=== PATIENT | female | born 1945 | race Two or more races ===

== ENCOUNTER 2022-05-27 15:29 | Inpatient (IN) | payer MEDICAID ==
[~2022-05-27] VITALS: Ht 162.6 cm; Wt 60.3 kg
--- NOTE | 2022-05-27 16:00 | NUR ---
WITH TRACH TO MECHINICALE VENT SITING TV 450 FIO2 40 % AC 12/MIN
--- NOTE | 2022-05-27 16:25 | NUR ---
CALLED [facility] [phone] SUB ACUTE PER ANA ROSA PT HAS A NEPHEROSTOMY TUBE THAT WAS DISLODGED WITH DX OF SVT AND RESPITATORY FAILURE. HAS A PICC LINE ON R.U.E. FULL CODE PCP IS DR. LABOY [phone]
--- NOTE | 2022-05-27 16:39 | NUR ---
NAVARRO GRAY [phone]
--- NOTE | 2022-05-27 17:00 | NUR ---
MOVE SHEET SUBMITTED.
[2022-05-27 17:06] LABS: BASOPHILS % (AUTO) 0.4 % (0.0-2.0); EOSINOPHILS % (AUTO) 13.8 % (0.0-6.0); HEMATOCRIT 30 % (33-45); HEMOGLOBIN 9.5 g/dL (11.5-14.8); LYMPHOCYTES % (AUTO) 18.4 % (20.0-44.0); MEAN CORPUSCULAR HGB CONC 32 g/dl (31.0-36.0); MEAN CORPUSCULAR VOLUME 95 fL (82-100); MONOCYTES # (AUTO) 0.5 K/uL (0.1-1.30); MONOCYTES % (AUTO) 9.4 % (2.0-12.0); NEUTROPHILS # (AUTO) 3.2 K/uL (1.8-8.9); PLATELET COUNT (AUTO) 224 K/uL (150-450); RED BLOOD CELL COUNT(AUTO) 3.12 MIL/uL (4.0-5.2); WHITE BLOOD COUNT (AUTO) 5.4 K/uL (4.3-11.0)
[2022-05-27 17:15] LABS: CREATININE 0.7 mg/dL (0.6-1.3); POTASSIUM 3.7 mmol/L (3.5-5.1)
--- NOTE | 2022-05-27 17:47 | NUR ---
SHIV DOBBS SENT TO LAB
--- NOTE | 2022-05-27 18:30 | NUR ---
PT CAME WITH F/C UA SENT TO LAB
[2022-05-27 19:02] LABS: BILIRUBIN,URINE NEGATIVE (NEGATIVE); COLOR,URINE YELLOW (YELLOW); LEUKOCYTE ESTERASE ,URINE 1+ (NEGATIVE); NITRITE, URINE NEGATIVE (NEGATIVE); PROTEIN,URINE TRACE mg/dl (NEGATIVE); UGLUCOSE NEGATIVE (NEGATIVE); UROBILINOGEN,URINE 0.2 EU/dL (0.2)
[2022-05-27 19:08] LABS: BACTERIA,URINE 2+ /HPF (None Seen); RBC,URINE 21-50 /HPF (0-2)
[2022-05-27] MEDS ORDERED: CEFTRIAXONE 1GM BAG (ER ONLY) 50 ML IV ONE (19:22)
[2022-05-27] MEDS ORDERED: CEFTRIAXONE 1GM BAG (ER ONLY) 1 GM/50 ML PIGGYBACK IV ONE (19:30)
--- NOTE | 2022-05-27 19:45 | NUR ---
HAND OFF PAYTON MOORE
--- NOTE | 2022-05-27 21:03 | NUR ---
[facility] PAGED PER DR RAZO,
[2022-05-27] MEDS ORDERED: Z GUARD REMEDY 4 OZ OINT TP PRN (21:30)
[2022-05-27] MEDS ORDERED: hydrALAZINE HCL IV 20 MG VIAL IV PRN (21:30)
[2022-05-27] MEDS ORDERED: ACETAMINOPHEN 325 MG TABLET PO PRN (21:30)
[2022-05-27] MEDS ORDERED: MORPHINE SULFATE INJ 2 MG/ML DISP.SYRIN IV PRN (21:30)
[2022-05-27] MEDS ORDERED: ONDANSETRON HCL/PF 4 MG/2 ML VIAL IVP PRN (21:30)
--- NOTE | 2022-05-28 02:55 | NUR ---
REPORT GIVEN TO CLINTON
--- NOTE | 2022-05-28 03:30 | NUR ---
pt transported to room 112 on cardiac per acls in stable condition. RT at bedside at bedside.
[2022-05-28 03:45] VITALS: BP 116/58
[2022-05-28] MEDS ORDERED: CEFEPIME 2 GM in IV D5W 100 ML IV ONE (04:30)
--- NOTE | 2022-05-28 04:34 | NUR ---
RN NOTE 0338 ADMITTED PT WITH DIAGNOSIS OF NEPHROSTOMY TUBE EXCHANGE. PT ON WITH TRACH CONNECTED TO VENT WITH SETTINGS OF AC 12 TV 450 FIO2 40% P 5. O2 SAT AT 99%. PT NON VERBAL, OPEN EYES TO STIMULI. NOT IN ANY DISTRESS. PT CAME IN WITH LEFT HAND MITTENS, PT TRYING TO PULL OUT TUBINGS. COLOSTOMY BAG CHANGED WITH GREENISH WATERY OUTPUT. VILLANUEVA CATH INPLACE DRAINING TRAMAINE URINE OUTPUT. OLD NEPHROSTOMY SITE ON RIGHT LATERAL SIDE NOTED WITH SOME REDNESS. GT PATENT AND IN PLACE. JOYCELYN PICC INTACT, FLUSHING WELL, NO BLOOD RETURN NOTED. PRESSURE INJURY ON SACRUM, APPLIED MEPILEX. ALL SAFETY MEASURES IN PLACE. WILL CONTINUE TO MONITOR. WILL GIVE DUE MEDS.
[2022-05-28] MEDS: ENOXAPARIN SODIUM 40 MG/0.4 ML DISP.SYRIN SQ SCH ×2 (04:48→21:12)
[2022-05-28] MEDS: IV NS 0.9% 1,000 ML IV SCH ×2 (04:48→11:26)
[2022-05-28] MEDS ORDERED: CEFEPIME 2 GM in IV D5W 100 ML IV SCH (06:30)
--- NOTE | 2022-05-28 07:00 | NUR ---
STRUCTURAL STEEL TRADES WORKER OPENING NOTES: RN NOTE Received patient in bed,AWAKE, NON VERBAL DOESN'T FOLLOW COMMAND, in no acute distress, ON MECHANICAL VENT PRESCRIBED. IV line at JOYCELYN PICC LINE IS LEAKING WILL INSERT NEW LINE, IV fluid of NS at 75 ml/hr. NOTED WITH LEFT HAND MITTEN, SKIN AND CIRCULATION CHECKED WITHIN NORMAL.COLOSTOMY BAG IN PLACE.VILLANUEVA CATH CONNECTED TO GRAVITY BAG DRAINING YELLOW CLEAR URINE.NO LEAKING NOTED.Safety measures in place, bed is locked and at lowest position, call light within reach of patient. Will continue to monitor and reassess.
[2022-05-28 07:03] LABS: BASOPHILS % (AUTO) 0.6 % (0.0-2.0); EOSINOPHILS % (AUTO) 14.3 % (0.0-6.0); HEMATOCRIT 28 % (33-45); HEMOGLOBIN 9.2 g/dL (11.5-14.8); LYMPHOCYTES # (AUTO) 1.1 K/uL (0.8-4.8); LYMPHOCYTES % (AUTO) 17.8 % (20.0-44.0); MEAN CORPUSCULAR HGB CONC 33 g/dl (31.0-36.0); MEAN CORPUSCULAR VOLUME 94 fL (82-100); MONOCYTES # (AUTO) 0.6 K/uL (0.1-1.30); MONOCYTES % (AUTO) 10.3 % (2.0-12.0); NEUTROPHILS # (AUTO) 3.4 K/uL (1.8-8.9); PLATELET COUNT (AUTO) 245 K/uL (150-450); RED BLOOD CELL COUNT(AUTO) 2.96 MIL/uL (4.0-5.2); WHITE BLOOD COUNT (AUTO) 5.9 K/uL (4.3-11.0)
[2022-05-28 07:15] LABS: ALBUMIN 2.7 g/dL (3.4-5.0); BILIRUBIN,TOTAL 0.4 mg/dL (0.2-1.0); CALCIUM, SERUM 9.2 mg/dL (8.5-10.1); CREATININE 0.7 mg/dL (0.6-1.3); MAGNESIUM 2.1 mg/dL (1.8-2.4); POTASSIUM 3.9 mmol/L (3.5-5.1); TOTAL PROTEIN, SERUM 7.2 g/dL (6.4-8.2)
[2022-05-28 08:00] VITALS: BP 121/58
[2022-05-28] MEDS ORDERED: HEPA50008 SQ (08:58)
[2022-05-28] MEDS ORDERED: ACET-2605 GT (08:58)
[2022-05-28] MEDS ORDERED: MELO-105 GT (08:58)
[2022-05-28] MEDS ORDERED: LEVO500P10 IV (08:58)
[2022-05-28] MEDS ORDERED: METO25TA20 GT (08:58)
[2022-05-28] MEDS ORDERED: BISA10SU11 RC (08:58)
[2022-05-28] MEDS ORDERED: IPRA4AER IH (08:58)
[2022-05-28] MEDS ORDERED: CHLO473M5 MM (08:58)
[2022-05-28] MEDS ORDERED: DOCU50LI GT (08:58)
[2022-05-28] MEDS ORDERED: ATOR40TA GT (08:58)
[2022-05-28] MEDS ORDERED: BUSP5TAB3 GT (08:58)
[2022-05-28] MEDS ORDERED: PANT40SU GT (08:58)
[2022-05-28] MEDS ORDERED: MULT-447 GT (08:58)
[2022-05-28] MEDS ORDERED: MAGN400O6 GT (08:58)
[2022-05-28] MEDS ORDERED: ACET-868 GT (08:58)
[2022-05-28] MEDS ORDERED: ASPI-1169 GT (08:58)
[2022-05-28] MEDS ORDERED: NUTR250L50 GT (08:58)
[2022-05-28] MEDS: ASPIRIN 81 MG TAB.CHEW GT SCH (11:26)
[2022-05-28] MEDS ORDERED: HOME MED MISCELLANEOUS XX SCH (11:30)
[2022-05-28] MEDS ORDERED: MAGNESIUM HYDROXIDE 30 ML UDC GT PRN (11:30)
[2022-05-28] MEDS ORDERED: BISACODYL SUPP (10 MG) 10 MG/SUPP.RECT SUPP.RECT RC PRN (11:30)
[2022-05-28] MEDS ORDERED: JEVITY 1.2 CAL 1,000 ML BOTTLE GT PRN ×2 (11:30→12:58)
[2022-05-28] MEDS ORDERED: ACETAMINOPHEN ES 500 MG TABLET GT PRN (11:30)
[2022-05-28 12:00] VITALS: BP 115/58
--- NOTE | 2022-05-28 12:02 | NUR ---
LINE NOT PICCLINE,PER FRANCHESCA NO NEED TO CULTURE.
[2022-05-28] MEDS: Z GUARD REMEDY 4 OZ OINT TP SCH (14:23)
[2022-05-28 16:00] VITALS: BP 113/53
[2022-05-28] MEDS: busPIRone 5 MG TABLET GT SCH (16:40)
[2022-05-28] MEDS: CHLORHEXIDINE GLUCONATE 15 ML UDC MM SCH (16:40)
[2022-05-28] MEDS: CEFEPIME 2 GM in IV D5W 100 ML IV SCH (17:03)
--- NOTE | 2022-05-28 19:03 | NUR ---
RN CLOSING NOTE: PT IS AWAKE IN BED. NO SIGNS OF PAIN OR DISCOMFORT AT THIS TIME. IV YUMIKO MIDLINE. TRACH IS PATENT, INTACT, AND IN MIDLINE POSITION. PT IS ON GTF JEVITY 50CC/HR. HOB ELEVATED TO 30-45 DEGREES. SIDERAILS UP AT ALL TIMES. CALL LIGHT WITHIN REACH. WILL ENDORSE TO ONCOMING NURSE.
--- NOTE | 2022-05-28 19:30 | NUR ---
PT RECEIVED AWAKE IN BED. NO SIGNS OF PAIN OR DISCOMFORT AT THIS TIME. IV YUMIKO MIDLINE INFUSING NS AT 75ML/HR. TRACH IS PATENT, INTACT WITH SETTINGS PRESCRIBED. PT IS ON GTF JEVITY 1.2 AT 50CC/HR. VILLANUEVA CATH IN PLACE DRAINING CLEAR YELLOW URINE. SAFETY MEASURES IN PLACE. HOB ELEVATED, SIDERAILS UPX3, BED LOCKED IN LOWEST POSITION, BED ALARM ON, CALL LIGHT WITHIN REACH. WILL CONTINUE PLAN OF CARE.
[2022-05-28 20:00] VITALS: BP 121/56
[2022-05-28] MEDS: METOPROLOL TARTRATE 25 MG TABLET GT SCH (21:10)
[2022-05-28] MEDS: ATORVASTATIN 40 MG TABLET GT SCH (21:13)
[2022-05-29] VITALS: BP 116/50
[2022-05-29 04:00] VITALS: BP 124/61
[2022-05-29] MEDS: CEFEPIME 2 GM in IV D5W 100 ML IV SCH ×2 (05:00→17:19)
--- NOTE | 2022-05-29 06:37 | NUR ---
PT ASLEEP IN BED. NO SIGNS OF PAIN OR DISCOMFORT AT THIS TIME. IV ACCESS ON YUMIKO MIDLINE PATENT AND INTACT. TRACH IS PATENT, INTACT WITH SETTINGS PRESCRIBED. PT IS ON NPO DIET. VILLANUEVA CATH IN PLACE DRAINING CLEAR YELLOW URINE. COLOSTOMY BAG CHANGED. LT SOFT WRIST RESTRAINT IN PLACE, CHECKED FOR CIRCULATION. DUE MEDS GIVEN ORDERED. NEEDS ATTENDED. SAFETY MEASURES MAINTAINED, HOB ELEVATED, SIDERAILS UPX3, BED LOCKED IN LOWEST POSITION, BED ALARM ON, CALL LIGHT WITHIN REACH. WILL ENDORSE TO NEXT NURSE ON DUTY FOR CONTINUITY OF CARE.
--- NOTE | 2022-05-29 07:00 | NUR ---
RN OPENING NOTES: RECIEVED PT AWAKE IN BED. NON VERBAL AND UNABLE TO FOLLOW COMMAND. PT HAS SOFT RESTRAINTS ON LEFT WRIST TO PREVENT FROM PULLING LIFE SUSTAINING TUBES. NO SIGNS OF PAIN OR DISCOMFORT AT THIS TIME. RESPIRATIONS ARE EQUAL AND UNLABORED WITH NO SOB. TRACH IS PATENT, INTACT, AND IN MIDLINE POSITION. GT IS PATENT AND INTACT. PT HAS BEEN NPO SINCE MIDNIGHT FOR POSSIBLE PROCEDURE TODAY. HOB ELEVATED TO 30-45 DEGREES. SIDERAILS UP AT ALL TIMES. WILL CONTINUE TO MONITOR.
[2022-05-29 07:12] LABS: BASOPHILS % (AUTO) 0.4 % (0.0-2.0); EOSINOPHILS % (AUTO) 11.3 % (0.0-6.0); HEMATOCRIT 27 % (33-45); HEMOGLOBIN 8.6 g/dL (11.5-14.8); LYMPHOCYTES # (AUTO) 1.3 K/uL (0.8-4.8); LYMPHOCYTES % (AUTO) 17.4 % (20.0-44.0); MEAN CORPUSCULAR HGB CONC 32 g/dl (31.0-36.0); MEAN CORPUSCULAR VOLUME 96 fL (82-100); MONOCYTES # (AUTO) 0.7 K/uL (0.1-1.30); NEUTROPHILS # (AUTO) 4.6 K/uL (1.8-8.9); NEUTROPHILS % (AUTO) 61.9 % (43.0-81.0); PLATELET COUNT (AUTO) 220 K/uL (150-450); RED BLOOD CELL COUNT(AUTO) 2.78 MIL/uL (4.0-5.2); WHITE BLOOD COUNT (AUTO) 7.4 K/uL (4.3-11.0)
[2022-05-29 07:17] LABS: CALCIUM, SERUM 8.3 mg/dL (8.5-10.1); CREATININE 0.6 mg/dL (0.6-1.3); POTASSIUM 3.9 mmol/L (3.5-5.1)
[2022-05-29 08:00] VITALS: BP 110/69
--- NOTE | 2022-05-29 08:08 | NUR ---
RN NOTES: SPOKE WITH FRANCHESCA ELLER SECONDS GRADER PT IS NPO FOR POSSIBLE PROCEDURE NEPHROSTOMOY PLACEMENT TODAY. WITH NEW ORDER TO START IVF D5 NS @50ML/HR UNTIL PROCEDURE DONE.
[2022-05-29] MEDS: IV D5/ 0.9% NACL 1,000 ML IV PRN (08:18)
[2022-05-29] MEDS: MELOXICAM 7.5 MG TABLET GT SCH (08:41)
[2022-05-29] MEDS: ASPIRIN 81 MG TAB.CHEW GT SCH (08:42)
[2022-05-29] MEDS: CHLORHEXIDINE GLUCONATE 15 ML UDC MM SCH ×3 (08:42→17:19)
[2022-05-29] MEDS: MULTIVITAMINS,THERAGRAN 1 UDTAB TABLET GT SCH (08:42)
[2022-05-29] MEDS: DOCUSATE SODIUM LIQ 100 MG/10 ML UDC GT SCH (08:42)
[2022-05-29] MEDS: busPIRone 5 MG TABLET GT SCH ×2 (08:42→17:19)
[2022-05-29] MEDS: Z GUARD REMEDY 4 OZ OINT TP SCH (09:15)
[2022-05-29] MEDS: METOPROLOL TARTRATE 25 MG TABLET GT SCH ×2 (09:18→21:46)
--- NOTE | 2022-05-29 09:34 | NUR ---
WOUND CARE CONSULT: PT NOTED TO BE SCRATCHING AT HER SKIN. SCABS, SCARS, AREAS OF DISCOLORATION NOTED EPECIALLY ON RT SIDE OF BODY, PRESENT ON ADMISSION. SACRAL SCARRING WITH INCONTINENCE ASSOCIATED OPEN AREA OVER SCARRING NOTED. RECOMMENDATIONS MADE FOR SKIN PROTECTION. DISCUSSED WITH NURSING STAFF. MD IN AGREEMENT WITH PLAN OF CARE.
[2022-05-29 12:00] VITALS: BP 115/62
[2022-05-29] MEDS ORDERED: PERMETHRIN 5% CRM 60 GM TUBE TP ONE (13:30)
[2022-05-29 16:00] VITALS: BP 125/67
--- NOTE | 2022-05-29 18:50 | NUR ---
RN CLOSING NOTE: PT IS AWAKE IN BED. NO SIGNS OF PAIN OR DISCOMFORT AT THIS TIME. IV YUMIKO MIDLINE PATENT AND INTACT. TRACH IS PATENT, INTACT, AND IN MIDLINE POSITION. PT IS ON GTF JEVITY 50CC/HR AND CURRENTLY RUNNING. HOB ELEVATED TO 30-45 DEGREES. SIDERAILS UP AT ALL TIMES. CALL LIGHT WITHIN REACH. WILL ENDORSE TO ONCOMING NURSE.
--- NOTE | 2022-05-29 19:30 | NUR ---
RN OPENING NOTES: RECIEVED PT AWAKE IN BED. NON VERBAL ON MECH VENT TOLERATING WELL. AND UNABLE TO FOLLOW COMMAND. PT HAS SOFT RESTRAINTS ON LEFT WRIST TO PREVENT FROM PULLING LIFE SUSTAINING TUBES. NO SIGNS OF PAIN OR DISCOMFORT AT THIS TIME. RESPIRATIONS ARE EQUAL AND UNLABORED WITH NO SOB. TRACH IS PATENT, INTACT, AND IN MIDLINE POSITION. GTUBE IS PATENT AND INTACT. PT HAS G TUBE RUNNING JEVITY@50ML/HR. WILL MAKE NPO AT MIDNIGHT. VILLANUEVA DRAINING CLEAR YELLOW URINE, PT HAS OSTOMY POUCH LQUADRANT PRODUCING BROWN LOOSE STOOL.SAFETY MEASURES IMPLEMENTED, BED IN LOWEST POSITION, LOCKED, SIDE RAILS UP, CALL LIGHT WITHIN REACH. WILL CONTINUE TO MONITOR THROUGHOUT SHIFT FOR ALBERTA.
[2022-05-29 20:00] VITALS: BP 129/70
[2022-05-29] MEDS: THERAHONEY GEL 1.5 OZ TUBE TP SCH (20:16)
[2022-05-29] MEDS: ATORVASTATIN 40 MG TABLET GT SCH (21:45)
[2022-05-30] VITALS: BP 135/72
[2022-05-30 04:00] VITALS: BP 130/65
[2022-05-30] MEDS: CEFEPIME 2 GM in IV D5W 100 ML IV SCH ×2 (06:45→17:52)
--- NOTE | 2022-05-30 07:42 | NUR ---
RN OPENING NOTES RECEIVED PT AWAKE IN BED. NON VERBAL ON [facility] VENT TOLERATING WELL. AND UNABLE TO FOLLOW COMMAND. PT HAS SOFT RESTRAINTS ON LEFT WRIST TO PREVENT FROM PULLING LIFE SUSTAINING TUBES. NO SIGNS OF PAIN OR DISCOMFORT AT THIS TIME. RESPIRATIONS ARE EQUAL AND UNLABORED WITH NO SOB. TRACH IS PATENT, INTACT, AND IN MIDLINE POSITION. GTUBE IS PATENT AND INTACT. PT HAS G TUBE RUNNING JEVITY@50ML/HR. WILL MAKE NPO AT MIDNIGHT. VILLANUEVA DRAINING CLEAR YELLOW URINE, PT HAS OSTOMY POUCH L QUADRANT PRODUCING BROWN LOOSE STOOL.SAFETY MEASURES IMPLEMENTED, BED IN LOWEST POSITION, LOCKED, SIDE RAILS UP, CALL LIGHT WITHIN REACH.
[2022-05-30 08:00] VITALS: BP 123/71
[2022-05-30] MEDS: ASPIRIN 81 MG TAB.CHEW GT SCH (08:02)
[2022-05-30] MEDS: DOCUSATE SODIUM LIQ 100 MG/10 ML UDC GT SCH (08:05)
[2022-05-30] MEDS: CHLORHEXIDINE GLUCONATE 15 ML UDC MM SCH ×2 (08:05→16:29)
[2022-05-30] MEDS: MULTIVITAMINS,THERAGRAN 1 UDTAB TABLET GT SCH (08:05)
[2022-05-30] MEDS: Z GUARD REMEDY 4 OZ OINT TP SCH (08:06)
[2022-05-30] MEDS: METOPROLOL TARTRATE 25 MG TABLET GT SCH ×2 (08:06→21:19)
[2022-05-30] MEDS: THERAHONEY GEL 1.5 OZ TUBE TP SCH (08:06)
[2022-05-30] MEDS: busPIRone 5 MG TABLET GT SCH ×2 (08:07→16:29)
[2022-05-30] MEDS: MELOXICAM 7.5 MG TABLET GT SCH (08:07)
[2022-05-30 12:00] VITALS: BP 127/64
[2022-05-30] MEDS: MUPIROCIN OINT 2% 22 GM TUBE NS SCH ×2 (15:38→21:17)
[2022-05-30 16:00] VITALS: BP 119/74
[2022-05-30] MEDS: IV D5/ 0.9% NACL 1,000 ML IV PRN (16:29)
[2022-05-30] MEDS: JEVITY 1.2 CAL 1,000 ML BOTTLE GT PRN (18:14)
--- NOTE | 2022-05-30 18:56 | NUR ---
RN CLOSING NOTE: PT IS AWAKE IN BED. NO SIGNS OF PAIN OR DISCOMFORT AT THIS TIME. IV YMUIKO MIDLINE PATENT AND INTACT. TRACH IS PATENT, INTACT, AND IN MIDLINE POSITION. PT IS ON GTF JEVITY 50CC/HR AND CURRENTLY RUNNING. HOB ELEVATED TO 30-45 DEGREES. SAFETY MEASURES IMPLEMENTED PER HOSPITAL POLICY, SIDERAILS UP AT ALL TIMES. CALL LIGHT WITHIN REACH. WILL ENDORSE TO COMPOUNDING AND FINISHING SUPERVISOR NURSE TO CONTINUE EVALUATION.
--- NOTE | 2022-05-30 19:30 | NUR ---
RN OPENING NOTES: RECEIVED PT ASLEEP IN BED. NON VERBAL ON MECH VENT TOLERATING WELL. AND UNABLE TO FOLLOW COMMAND. PT HAS SOFT RESTRAINTS ON LEFT WRIST TO PREVENT FROM PULLING LIFE SUSTAINING TUBES. NO SIGNS OF PAIN OR DISCOMFORT AT THIS TIME. RESPIRATIONS ARE EQUAL AND UNLABORED WITH NO SOB. TRACH IS PATENT, INTACT, AND IN MIDLINE POSITION. GTUBE IS PATENT AND INTACT. PT HAS G TUBE RUNNING JEVITY@55ML/HR. WILL MAKE NPO AT MIDNIGHT. VILALNUEVA DRAINING CLEAR YELLOW URINE, PT HAS OSTOMY POUCH LQUADRANT PRODUCING BROWN LOOSE STOOL.SAFETY MEASURES IMPLEMENTED, BED IN LOWEST POSITION, LOCKED, SIDE RAILS UP, CALL LIGHT WITHIN REACH. WILL CONTINUE TO MONITOR THROUGHOUT SHIFT FOR ALBERTA.
[2022-05-30 20:00] VITALS: BP 128/70
[2022-05-30] MEDS: ATORVASTATIN 40 MG TABLET GT SCH (21:20)
[2022-05-31] VITALS: BP 126/80
[2022-05-31 04:00] VITALS: BP 116/73
[2022-05-31] MEDS: CEFEPIME 2 GM in IV D5W 100 ML IV SCH ×2 (05:14→18:46)
[2022-05-31 08:00] VITALS: BP 138/76
--- NOTE | 2022-05-31 08:00 | NUR ---
RN NOTES RECEIVED PATIENT TRACHEA/VENT DEPENDENT, FIO2-40%. PEEP-5, SETTING TOLERATING WELL, PATIENT EYES IS OPEN, NO ACUTE RESPIRATORY DISTRESS, RT WITH THE PATIENT FOR BREATHING TREATMENT, PT HAS SOFT RESTRAINTS ON LEFT WRIST TO PREVENT FROM PULLING LIFE SUSTAINING TUBING. G-TUBE IS PATENT AND INTACT NO RESIDUAL, DUE MEDICATION ADMINISTERED, RUNNING JEVITY 1.2 @50ML/HR. VILLANUEVA DRAINING CLEAR YELLOW URINE, PT HAS OSTOMY INTACT. SUCTION, MOUTH CARE DONE, ASSISTTURN AND REPOSTION Q 2 HR. WILL FOLLOW UP.
[2022-05-31] MEDS: busPIRone 5 MG TABLET GT SCH ×2 (09:12→17:48)
[2022-05-31] MEDS: METOPROLOL TARTRATE 25 MG TABLET GT SCH ×2 (09:12→21:00)
[2022-05-31] MEDS: MULTIVITAMINS,THERAGRAN 1 UDTAB TABLET GT SCH (09:12)
[2022-05-31] MEDS: ASPIRIN 81 MG TAB.CHEW GT SCH (09:13)
[2022-05-31] MEDS: CHLORHEXIDINE GLUCONATE 15 ML UDC MM SCH ×2 (09:13→17:48)
[2022-05-31] MEDS: DOCUSATE SODIUM LIQ 100 MG/10 ML UDC GT SCH (09:13)
[2022-05-31] MEDS: MELOXICAM 7.5 MG TABLET GT SCH (09:13)
[2022-05-31] MEDS: MUPIROCIN OINT 2% 22 GM TUBE NS SCH ×2 (09:14→22:05)
[2022-05-31] MEDS: THERAHONEY GEL 1.5 OZ TUBE TP SCH (09:14)
[2022-05-31] MEDS: Z GUARD REMEDY 4 OZ OINT TP SCH (09:16)
[2022-05-31 12:00] VITALS: BP 138/76
--- NOTE | 2022-05-31 13:00 | NUR ---
rn notes patient taken CT of abdomen WO contrast.
[2022-05-31] MEDS: JEVITY 1.2 CAL 1,000 ML BOTTLE GT PRN (17:48)
--- NOTE | 2022-05-31 18:40 | NUR ---
britney notes per hospitalist Dr Maryanne monroe patient going AMA. Addendum: 05/31/22 at 1913 by NABIL IBARRA RN above notes wrong entry
[2022-05-31 19:01] VITALS: BP 115/70
[2022-05-31 20:00] VITALS: BP 105/60
--- NOTE | 2022-05-31 20:10 | NUR ---
RN OPENING NOTES PATIENT RECEIVED ON BED AWAKE, OBTUNDED, ON MECHANICAL VENTILATOR, WITH SETTINGS TIDAL VOLUME- 500, AC- 14, FIO2- 40%, PEEP- OFF, RESPIRATORY EVEN AND UNLABORED NO SOB NOTED, AFEBRILE, NO S/S OF DISTRESS NOTED. NOTED WITH JOYCELYN ML, RAC #20 PERIPHERAL LINE, FLUSHED WITH NS. G-TUBE PATENT AND INTACT, VERIFIED PLACEMENT BY AUSCULTATION, NOTED WITH 30 ML RESIDUAL UPON ASPIRATION. RUNNING WITH NEPHRO @ 50 ML/HR X 16 HRS WITH GOAL OF 60 ML/HR. ON VILLANUEVA CATHETER PATENT, DRAINING WITH CLEAR YELLOW URINE VIA GRAVITY, ALL SAFETY MEASURE PROVIDED. BED IN LOWEST POSITION, LOCKED. CONTINUE TO MONITOR.
--- NOTE | 2022-05-31 20:15 | NUR ---
RCVD PT TRACHED SHILEY 4 COVIDIEN CUFFED ON [facility] VENT SETTINGS OF AC 12,VT 450 ,FIO2 40% PEEP 5. PT IS AWAKE AND NON VERBAL . VENT PLUGGED INTO RED OUTLET, VENT ALARMS ON AND AUDIBLE. AMBU BAG @ BEDSIDE, FILLETER DONE . TRACH PATENT AND SECURED. NO RESPIRATORY DISTRESS NOTED AT THIS TIME. WILL CONTINUE TO MONITOR T/O SHIFT.
[2022-05-31] MEDS: ATORVASTATIN 40 MG TABLET GT SCH (22:04)
--- NOTE | 2022-05-31 23:00 | NUR ---
RN NOTES PATIENT NOTED WITH PULLED OUT GTUBE, VILLANUEVA CATHETER INSERTED TO STOMA, AND SECURED WITH DRY DRESSING, BARREL LATHE OPERATOR DEONTE HOLLY MADE AWARE. PREVIOUS GTUBE SIZE FR. 20.
[2022-06-01] VITALS: BP 119/70
--- NOTE | 2022-06-01 00:15 | NUR ---
RN NOTES INKER DEONTE HOLLY AT BEDSIDE, GTUBE REINSERTED FR. 20 ASEPTICALLY, PROCEDURE TOLERATED WELL, NO BLEEDING NOTED. WITH NEW ORDER KUB WITH GASTROGRAFIN NOTED AND CARRIED OUT.
[2022-06-01 04:00] VITALS: BP 131/77
[2022-06-01] MEDS: CEFEPIME 2 GM in IV D5W 100 ML IV SCH ×2 (05:22→17:55)
--- NOTE | 2022-06-01 06:30 | NUR ---
[address] on ACLS protocol, accompanied by RTs.
--- NOTE | 2022-06-01 06:45 | NUR ---
[address] in no apparent distress.
--- NOTE | 2022-06-01 07:15 | NUR ---
RN notes Received patient in bed. Facial expression is normal and not in distress. Spo2 100% with Fio2 40% via ventilator. Telemetry showed SR with HR 80/min. Right UA midline is dry, intact and patent. Circulation is good with soft restraints use. Call zhou is placed within reach. Bed is locked and placed in the lowest position. All safety measures have been implemented. Will continue monitoring and care.
[2022-06-01 08:00] VITALS: BP 130/72
--- NOTE | 2022-06-01 09:20 | NUR ---
RN notes CT abdomen report has returned and showed that G-tube is in-situ. Medications have been given and G-tube feeding has been resumed.
[2022-06-01] MEDS: ASPIRIN 81 MG TAB.CHEW GT SCH (09:22)
[2022-06-01] MEDS: DOCUSATE SODIUM LIQ 100 MG/10 ML UDC GT SCH (09:22)
[2022-06-01] MEDS: MULTIVITAMINS,THERAGRAN 1 UDTAB TABLET GT SCH (09:22)
[2022-06-01] MEDS: MELOXICAM 7.5 MG TABLET GT SCH (09:22)
[2022-06-01] MEDS: METOPROLOL TARTRATE 25 MG TABLET GT SCH ×2 (09:23→20:39)
[2022-06-01] MEDS: Z GUARD REMEDY 4 OZ OINT TP SCH (09:24)
[2022-06-01] MEDS: THERAHONEY GEL 1.5 OZ TUBE TP SCH (09:24)
[2022-06-01] MEDS: busPIRone 5 MG TABLET GT SCH ×2 (09:24→18:24)
[2022-06-01] MEDS: CHLORHEXIDINE GLUCONATE 15 ML UDC MM SCH ×2 (09:24→17:55)
[2022-06-01] MEDS: MUPIROCIN OINT 2% 22 GM TUBE NS SCH ×2 (09:24→20:43)
[2022-06-01 12:00] VITALS: BP_SYST 115; BP_SYST 135; BP_DIAS 71; BP_DIAS 73
--- NOTE | 2022-06-01 13:36 | NUR ---
RN notes Handover is given to [facility]'s RN Aros. Notified them about the planned discharge time at 1500.
--- NOTE | 2022-06-01 13:51 | NUR ---
RN notes Informed DNP. Yannick De León about small-moderate leaking over G-tube since we resumed feeding this morning. G-tube's placement is confirmed by CT abdomen this morning. He said to continue discharge and administer IV metoclopramide 10mg stat in the hospital and continue regular dose at the SNF.
[2022-06-01] MEDS ORDERED: METOCLOPRAMIDE HCL 10 MG/2 ML VIAL IV ONE (14:00)
--- NOTE | 2022-06-01 15:58 | NUR ---
teletypist note noted covid test rapid positive, called to patient case manager Caprice notified that called to angelita jorge with order to do pcr test , order carried out
[2022-06-01 16:00] VITALS: BP 135/73
--- NOTE | 2022-06-01 17:01 | NUR ---
BUCKLE FRAME SHAPER NOTE PER APPLICATION PROCESSOR SARAH YATES OK TO HOLD DISCHARGE FOR TODAY AWAITING FOR PCR TEST RESULT
[2022-06-01] MEDS ORDERED: DIATR MEGLU/DIATRIZOATE SODIUM 120 ML BOTTLE (GASTROGRAPHIN) ONE (17:24)
--- NOTE | 2022-06-01 17:46 | NUR ---
telesales representative note son at bedside removed soft restrain and patient removed g tube, placed back to hold stoma open, ordered kub stat to verified placement , called to dr panda gi doctor notified about g tube is out and kub ordered ,stated call him after kub result and will see patient tomorrow will f\u
--- NOTE | 2022-06-01 18:15 | NUR ---
RN notes Abdominal XR confirmed the placement of G-tube. Informed DR. Stearns about the tube confirmation and he ordered to continue G-tube feeding. Done as ordered.
[2022-06-01] MEDS: JEVITY 1.2 CAL 1,000 ML BOTTLE GT PRN (18:30)
--- NOTE | 2022-06-01 18:49 | NUR ---
RN notes Patient is resting in bed with normal expression. Telemetry showed SR with HR 98/min. IV site is dry and intact. G-tube feeding has started. Spo2 100% with Fio2 40% via ventilator. Call zhou is placed within reach. Bed is locked and placed in the lowest position. All safety measures have been implemented. Will endorse PM nurse to continue monitoring and care.
--- NOTE | 2022-06-01 18:56 | NUR ---
RN notes Patient is resting in bed without active complaint. Telemetry showed SR with HR 79/min. IV site is dry and intact. Call zhou is placed within reach. Bed is locked and placed in the lowest position. All safety measures have been implemented. Will endorse PM nurse to continue monitoring and care.
[2022-06-01 20:00] VITALS: BP 127/69
--- NOTE | 2022-06-01 20:00 | NUR ---
UPPER CUTTER OPENING NOTES: RECIEVED PT AWAKE IN BED. NON VERBAL AND UNABLE TO FOLLOW COMMAND. ON VENT AC SETTING WELL TOLERATED NO SOB NO DISTRESS NOTED , ON TELE MONITOR SR ON THE MONITOR ALL DUE MEDS GIVEN NO ADVERSE SIDE EFFECT NOTED . PT HAS SOFT RESTRAINTS ON LEFT WRIST TO PREVENT FROM PULLING LIFE SUSTAINING TUBES. NO SIGNS OF PAIN OR DISCOMFORT AT THIS TIME. RESPIRATIONS ARE EQUAL AND UNLABORED WITH NO SOB. TRACH IS PATENT, INTACT, AND IN MIDLINE POSITION. GT IS PATENT AND INTACT. PTS GT SITE NOTED STILL LEAKING FEEDING IN PROGRESS VILLANUEVA CATH IN SITU DRAINING WITH YELLOWISH URINE OUTPUT, COLOSTOMY BAG INTACT AND PATENT . HOB ELEVATED TO 30-45 DEGREES. SUCTION SECRETION NEEDED TURNED AND REPOSITION ALL NEEDS ATTENDED TOO CAQL LIGHT WITHIN REACH ALL PRECAUTIONARY MEASURES OBSERVED AT ALL TIMES .SIDERAILS UP AT ALL TIMES. WILL CONTINUE TO MONITOR.
[2022-06-01] MEDS: ATORVASTATIN 40 MG TABLET GT SCH (21:21)
[2022-06-02] VITALS: BP 137/95
[2022-06-02] MEDS: ACETAMINOPHEN 325 MG TABLET PO PRN (00:54)
[2022-06-02 04:00] VITALS: BP 141/91
[2022-06-02] MEDS: CEFEPIME 2 GM in IV D5W 100 ML IV SCH ×2 (05:01→17:05)
--- NOTE | 2022-06-02 07:00 | NUR ---
MORALS SQUAD POLICE OFFICER RECIEVED PT ON BED, ALERT/ DOES NOT FOLLOW COMMAND , VENT/ TRACH DEPENDENT, TOLERAING VENT SETTING WEL, ON TELE MONITOR SR . PT HAS SOFT RESTRAINTS ON LEFT WRIST TO PREVENT FROM PULLING LIFE SUSTAINING TUBES. GT IS SITE WITH DRESSING , FEEDING IN PROGRESS VILLANUEVA CATH IN SITU DRAINING WITH YELLOWISH URINE OUTPUT, COLOSTOMY BAG INTACT AND PATENT . HOB ELEVATED, CALL LIGHT WITHIN REACH ALL PRECAUTIONARY MEASURES OBSERVED AT ALL TIMES .SIDE RAILS UP x3, AT ALL TIMES. WILL CONTINUE TO MONITOR.
--- NOTE | 2022-06-02 07:08 | NUR ---
telephone station repairer notes Pts remains in bed on vent dependent no sob no distress noted , will endorse to rn day for continuity of care endirse to rn to follow up with mgd gt site leaking.
[2022-06-02 08:00] VITALS: BP 129/68
[2022-06-02] MEDS: DOCUSATE SODIUM LIQ 100 MG/10 ML UDC GT SCH (08:38)
[2022-06-02] MEDS: CHLORHEXIDINE GLUCONATE 15 ML UDC MM SCH ×2 (08:38→16:30)
[2022-06-02] MEDS: ASPIRIN 81 MG TAB.CHEW GT SCH (08:38)
[2022-06-02] MEDS: MULTIVITAMINS,THERAGRAN 1 UDTAB TABLET GT SCH (08:38)
[2022-06-02] MEDS: busPIRone 5 MG TABLET GT SCH ×2 (08:38→16:35)
[2022-06-02] MEDS: MELOXICAM 7.5 MG TABLET GT SCH (08:38)
[2022-06-02] MEDS: METOPROLOL TARTRATE 25 MG TABLET GT SCH ×2 (08:41→20:18)
[2022-06-02] MEDS: MUPIROCIN OINT 2% 22 GM TUBE NS SCH ×2 (08:41→20:19)
[2022-06-02] MEDS: THERAHONEY GEL 1.5 OZ TUBE TP SCH (08:42)
[2022-06-02] MEDS: Z GUARD REMEDY 4 OZ OINT TP SCH (08:42)
[2022-06-02] MEDS: METOCLOPRAMIDE HCL 10 MG/10 ML UDC GT SCH ×3 (08:44→16:29)
[2022-06-02 12:00] VITALS: BP 111/67
--- NOTE | 2022-06-02 12:04 | NUR ---
RN NOTES CALL RECEIVED FROM LAB , PCR POSITIVE, FRANCHESCA INNER LAYER SCRUBBER TENDER NOTIFIED.
[2022-06-02 16:00] VITALS: BP 120/68
[2022-06-02] MEDS: ENOXAPARIN SODIUM 40 MG/0.4 ML DISP.SYRIN SQ SCH (16:29)
--- NOTE | 2022-06-02 18:17 | NUR ---
RN NOTES NO SIGNIFCANT CHANGES NOTED ON THIS SHIFT, TRACH CARE DONE, O2 SAT WNL, COLOSTOMY INTACT , TF AT 50CC/HR RUNNING SR UP X3, CALL LIGHT WITHIN EASY REACH, BED LOCKED AND IN LOWEST POSITION, WILL ENDORSE TO DOT COMPLIANCE COORDINATOR NURSER FOR CONTINUITY OF CARE .
[2022-06-02 20:00] VITALS: BP 113/69
--- NOTE | 2022-06-02 20:00 | NUR ---
ACQUISITION EDITOR OPENING NOTES: RECIEVED PT AWAKE IN BED. NON VERBAL AND UNABLE TO FOLLOW COMMAND. ON VENT AC SETTING WELL TOLERATED NO SOB NO DISTRESS NOTED ,V/S STABLE AFEBRILE.WITH LEFT UPPER ARM MIDLINE INTACT AND PATENT. ON TELE MONITOR SR ON THE MONITOR ALL DUE MEDS GIVEN NO ADVERSE SIDE EFFECT NOTED . PT HAS SOFT RESTRAINTS ON LEFT WRIST TO PREVENT FROM PULLING LIFE SUSTAINING TUBES. NO SIGNS OF PAIN OR DISCOMFORT AT THIS TIME. RESPIRATIONS ARE EQUAL AND UNLABORED WITH NO SOB. TRACH IS PATENT, INTACT,IN MIDLINE POSITION. GT IS PATENT AND INTACT. PTS GT SITE NOTED STILL LEAKING FEEDING IN PROGRESS VILLANUEVA CATH IN SITU DRAINING WITH YELLOWISH URINE OUTPUT, COLOSTOMY BAG INTACT AND PATENT . HOB ELEVATED TO 30-45 DEGREES. SUCTION SECRETION NEEDED TURNED AND REPOSITION ALL NEEDS ATTENDED TOO CAQL LIGHT WITHIN REACH ALL PRECAUTIONARY MEASURES OBSERVED AT ALL TIMES .SIDERAILS UP AT ALL TIMES. WILL CONTINUE TO MONITOR.
[2022-06-02] MEDS: ATORVASTATIN 40 MG TABLET GT SCH (21:00)
[2022-06-03] VITALS: BP 95/55
[2022-06-03 04:00] VITALS: BP 125/72
[2022-06-03] MEDS: CEFEPIME 2 GM in IV D5W 100 ML IV SCH (05:15)
--- NOTE | 2022-06-03 05:16 | NUR ---
television analyzer notes pts noted clotted blood on gt site relayed to dr roman with order cbc bmp in am will continue to monitor pts.
--- NOTE | 2022-06-03 06:28 | NUR ---
director telemetry notes Pts remains in bed on vent dependent no sob no distress noted , will endorse to rn day for continuity of care [id number] to rn to follow up with gt site leaking.CBC BMP IN AM.
--- NOTE | 2022-06-03 07:15 | NUR ---
INFRASTRUCTURE MANAGER OPENING NOTES: RECEIVED PATIENT IN BED, ASLEEP BUT RESPONDS TO VOICE AND TACTILE STIMULI. PATIENT IS NONVERBAL AND IS ON MECHANICAL VENT WITH VENT SETTING FOLLOWS: AC 12, TV 450, FI02 40%, PEEP 5. NO RESPIRATORY DISTRESS NOTED, BREATHING EVEN AND UNLABORED WITH OXYGEN SATURATION OF 100%. ON SR ON TELE MONITOR WITH HR OF 90. HAS IV ACCESS ON LEFT UPPER ARM MIDLINE, INTACT, PATENT AND FLUSHES WELL WITH NO S/S INFILTRATION ON THE IV SITE. ON G-TUBE FEEDING OF JEVITY 1.2 @ 55 ML/HR. G-TUBE SITE WITH NO RESIDUAL NOTED, IN PLACE AND FLUSHES WELL. COLOSTOMY BAG INTACT. HOB KEPT ELEVATED. BED LOCKED AND IN LOWEST POSITION. ALL SAFETY MEASURES IN PLACE. CALL LIGHT WITHIN REACH. WILL CONTINUE TO MONITOR PATIENT THROUGHOUT SHIFT.
[2022-06-03 07:23] LABS: BASOPHILS # (AUTO) 0.1 K/uL (0.0-0.2); BASOPHILS % (AUTO) 0.6 % (0.0-2.0); HEMATOCRIT 30 % (33-45); HEMOGLOBIN 9.4 g/dL (11.5-14.8); LYMPHOCYTES # (AUTO) 1.5 K/uL (0.8-4.8); LYMPHOCYTES % (AUTO) 16.7 % (20.0-44.0); MEAN CORPUSCULAR HGB CONC 32 g/dl (31.0-36.0); MEAN CORPUSCULAR VOLUME 97 fL (82-100); MONOCYTES # (AUTO) 0.8 K/uL (0.1-1.30); MONOCYTES % (AUTO) 9.1 % (2.0-12.0); NEUTROPHILS # (AUTO) 5.6 K/uL (1.8-8.9); NEUTROPHILS % (AUTO) 63.6 % (43.0-81.0); PLATELET COUNT (AUTO) 256 K/uL (150-450); RED BLOOD CELL COUNT(AUTO) 3.08 MIL/uL (4.0-5.2); WHITE BLOOD COUNT (AUTO) 8.8 K/uL (4.3-11.0)
[2022-06-03 07:46] LABS: CALCIUM, SERUM 8.7 mg/dL (8.5-10.1); CREATININE 0.7 mg/dL (0.6-1.3)
[2022-06-03 08:00] VITALS: BP 124/63
[2022-06-03] MEDS: CHLORHEXIDINE GLUCONATE 15 ML UDC MM SCH ×2 (08:42→16:53)
[2022-06-03] MEDS: METOCLOPRAMIDE HCL 10 MG/10 ML UDC GT SCH ×3 (08:42→16:54)
[2022-06-03] MEDS: DOCUSATE SODIUM LIQ 100 MG/10 ML UDC GT SCH (08:42)
[2022-06-03] MEDS: busPIRone 5 MG TABLET GT SCH ×2 (08:44→16:53)
[2022-06-03] MEDS: METOPROLOL TARTRATE 25 MG TABLET GT SCH ×2 (08:44→21:06)
[2022-06-03] MEDS: ASPIRIN 81 MG TAB.CHEW GT SCH (08:44)
[2022-06-03] MEDS: MULTIVITAMINS,THERAGRAN 1 UDTAB TABLET GT SCH (08:44)
[2022-06-03] MEDS: MELOXICAM 7.5 MG TABLET GT SCH (08:44)
[2022-06-03] MEDS: MUPIROCIN OINT 2% 22 GM TUBE NS SCH ×2 (09:19→21:09)
[2022-06-03] MEDS: THERAHONEY GEL 1.5 OZ TUBE TP SCH (09:20)
[2022-06-03] MEDS: Z GUARD REMEDY 4 OZ OINT TP SCH (09:20)
[2022-06-03 12:00] VITALS: BP 124/63
--- NOTE | 2022-06-03 15:00 | NUR ---
NOTED SLIGHT BLEEDING ON PATIENT'S G-TUBE SITE. CALLED DR. CASTLE NOTIFIED AND WILL SEE THE PATIENT ONCE HE COMES IN THE HOSPITAL
[2022-06-03] MEDS: ENOXAPARIN SODIUM 40 MG/0.4 ML DISP.SYRIN SQ SCH (15:35)
[2022-06-03 16:00] VITALS: BP 127/70
[2022-06-03] MEDS: ACETAMINOPHEN 325 MG TABLET PO PRN (16:54)
--- NOTE | 2022-06-03 18:37 | NUR ---
ELECTRICAL CONTINUITY INSPECTOR CLOSING NOTES: PATIENT IN BED, ASLEEP BUT EASILY AROUSES TO TOUCH AND SOUND. REMAINS ON MECHANICAL VENT PREVIOUSLY ORDERED. ON ST ON TELE MONITOR WITH HR OF 101. ON G-TUBE FEEDING ORDERED, G-TUBE DRESSING DRY AND INTACT AT THIS TIME. HOB KEPT ELEVATED. ALL NEEDS MET AND ANTICIPATED. TEMP OF 99.2 AT THIS TIME. WILL ENDORSE TO INCOMING NURSE FOR CONTINUITY OF CARE.
[2022-06-03 20:00] VITALS: BP 120/71
--- NOTE | 2022-06-03 20:04 | NUR ---
LICENSING DIRECTOR OPENING NOTES: RECEIVED PT AWAKE IN BED. NON VERBAL AND UNABLE TO FOLLOW COMMAND. ON VENT AC SETTING WELL TOLERATED NO SOB NO DISTRESS NOTED ,V/S STABLE AFEBRILE.WITH LEFT UPPER ARM MIDLINE INTACT AND PATENT. ON TELE MONITOR SR ON THE MONITOR ALL DUE MEDS GIVEN NO ADVERSE SIDE EFFECT NOTED . PTS ON SOFT RESTRAINTS ON LEFT WRIST TO PREVENT FROM PULLING LIFE SUSTAINING TUBES. NO SIGNS OF PAIN OR DISCOMFORT AT THIS TIME. RESPIRATIONS ARE EQUAL AND UNLABORED WITH NO SOB. TRACH IS PATENT, INTACT,IN MIDLINE POSITION. GT IS PATENT AND INTACT. PTS GT SITE NOTED STILL LEAKING , FEEDING IN PROGRESS VILLANUEVA CATH IN SITU DRAINING WITH YELLOWISH URINE OUTPUT, COLOSTOMY BAG INTACT AND PATENT . HOB ELEVATED TO 30-45 DEGREES. SUCTION SECRETION NEEDED TURNED AND REPOSITION ALL NEEDS ATTENDED TOO CAQL LIGHT WITHIN REACH ALL PRECAUTIONARY MEASURES OBSERVED AT ALL TIMES .SIDERAIL UP AT ALL TIMES. WILL CONTINUE TO MONITOR.
[2022-06-03] MEDS: ATORVASTATIN 40 MG TABLET GT SCH (21:56)
[2022-06-04] VITALS: BP 125/80
[2022-06-04] MEDS: JEVITY 1.2 CAL 1,000 ML BOTTLE GT PRN (03:58)
[2022-06-04 04:00] VITALS: BP 135/63
--- NOTE | 2022-06-04 06:24 | NUR ---
registered nurse cardiac telemetry notes Pts remains in bed on vent dependent no sob no distress noted , will endorse to rn day for continuity of care [id number] to rn to follow up with gt site leaking. will continue to monitor.
--- NOTE | 2022-06-04 07:36 | NUR ---
INFORMATION SECURITY SPECIALIST NOTES: RECEIVED PT AWAKE IN BED. NON VERBAL AND UNABLE TO FOLLOW COMMAND. ON VENT AC SETTING WELL TOLERATED NO SOB NO DISTRESS NOTED ,V/S STABLE AFEBRILE.WITH LEFT UPPER ARM MIDLINE INTACT AND PATENT. ON TELE MONITOR SR HR 79 . PTS ON SOFT RESTRAINTS ON LEFT WRIST TO PREVENT FROM PULLING LIFE SUSTAINING TUBES. NO SIGNS OF PAIN OR DISCOMFORT AT THIS TIME. RESPIRATIONS ARE EQUAL AND UNLABORED , . GT IS PATENT AND INTACT. PTS GT SITE NOTED STILL LEAKING , FEEDING IN PROGRESS VILLANUEVA CATH NOTED WITH CLOUDY WITH YELLOWISH URINE OUTPUT, COLOSTOMY BAG INTACT AND PATENT . HOB ELEVATED TO 30-45 DEGREES WILL CONT TO MONITOR.
[2022-06-04 08:00] VITALS: BP 106/58
[2022-06-04] MEDS: MULTIVITAMINS,THERAGRAN 1 UDTAB TABLET GT SCH (09:32)
[2022-06-04] MEDS: METOCLOPRAMIDE HCL 10 MG/10 ML UDC GT SCH ×3 (09:32→17:25)
[2022-06-04] MEDS: ASPIRIN 81 MG TAB.CHEW GT SCH (09:32)
[2022-06-04] MEDS: DOCUSATE SODIUM LIQ 100 MG/10 ML UDC GT SCH (09:32)
[2022-06-04] MEDS: busPIRone 5 MG TABLET GT SCH ×2 (09:32→17:25)
[2022-06-04] MEDS: METOPROLOL TARTRATE 25 MG TABLET GT SCH ×2 (09:32→21:32)
[2022-06-04] MEDS: MELOXICAM 7.5 MG TABLET GT SCH (09:32)
[2022-06-04] MEDS: CHLORHEXIDINE GLUCONATE 15 ML UDC MM SCH ×2 (09:33→17:25)
[2022-06-04] MEDS: Z GUARD REMEDY 4 OZ OINT TP SCH (09:35)
[2022-06-04] MEDS: THERAHONEY GEL 1.5 OZ TUBE TP SCH (09:35)
[2022-06-04] MEDS: MUPIROCIN OINT 2% 22 GM TUBE NS SCH ×2 (09:36→21:33)
--- NOTE | 2022-06-04 10:30 | NUR ---
television news producer note dr patel at bedside aware that g tubes site is leaking and small amount of blood noted also notified that g tube site redness, ordered wound caregivers homecare started that will call dr amarilys anderson
[2022-06-04 12:00] VITALS: BP 106/50
[2022-06-04] MEDS ORDERED: DIATR MEGLU/DIATRIZOATE SODIUM 30 ML BOTTLE (GASTROGRAPHIN) ONE (12:23)
--- NOTE | 2022-06-04 12:41 | NUR ---
telephone answerer note kub done as ordered
--- NOTE | 2022-06-04 14:54 | NUR ---
television and radio repairer note reported to dr jorge robert result stated g tube in place but dr amarilys anderson will come , will f\u
[2022-06-04] MEDS: ENOXAPARIN SODIUM 40 MG/0.4 ML DISP.SYRIN SQ SCH (15:24)
[2022-06-04 16:00] VITALS: BP 117/57
--- NOTE | 2022-06-04 18:44 | NUR ---
RADIUS GRINDER NOTE PATIENT IN BED, WITH TRACH TO VENT SETTING ORDERED, ON TELEMONITOR SR HR 79. WITH COLOSTOMY WITH DARK BROWN LIQUID STOOL NOTED, WITH VILLANUEVA CATH TO GRAVITY, ON G TUBE FEEDING ORDERED, STILL GTUBE SITE WITH LEAKING NOTED AND SOME BLOOD , DRY DRESSING IN PLACE, WILL AWAIT FOR DR LEONARD , KEEP HOB ELEVATED AT ALL TIME, WILL CONT TO MONITOR , Addendum: 06/04/22 at 1904 by JOSELYN CAGLE RN UNABLE TO REMOVE SOFT RESTAIN STILL AT RISK FOR REMOVE ALL LINES
--- NOTE | 2022-06-04 19:30 | NUR ---
ASSISTANT COMMUNITY MANAGER OPEN NOTE: EYES OPEN. TRACH WITH VENT AT PRESCRIBED SETTING. GT IN PLACE, PATENT, NO RESIDUAL, WITH JEVITY 1.2 AT 55ML/HR. GT STOMA COVERED WITH DRY DRESSING. TELE MONITOR ON WITH A READING OF SINUS RHYTHM 94. LEFT UPPER ARM MIDLINE IN PLACE PATENT WITH CLEAN DRESSING. COLOSTOMY IN PLACE WITH BLACK LIQUID STOOL. LEFT SOFT WRIST RESTRAINT IN PLACE, CIRCULATION WITHIN NORMAL, NO SKIN BREAKDOWN. VILLANUEVA IN PLACE DRAINING YELLOW URINE. REPOSITIONED. HOB ELEVATED SEMI FOWLERS POSITION BILATERAL HALF SIDE RAILS UPX2. BED IN LOW POSITION, LOCKED, WITH EXIT ALARM ON. CALL LIGHT IN REACH.
[2022-06-04 20:00] VITALS: BP 125/56
[2022-06-04] MEDS: ATORVASTATIN 40 MG TABLET GT SCH (21:32)
[2022-06-05] VITALS: BP 108/75
[2022-06-05] MEDS: JEVITY 1.2 CAL 1,000 ML BOTTLE GT PRN (01:05)
[2022-06-05 04:00] VITALS: BP 110/80
--- NOTE | 2022-06-05 06:44 | NUR ---
TICKET SCHEDULER CLOSING NOTE: EYES OPEN. TRACH WITH VENT AT PRESCRIBED SETTING. GT IN PLACE, PATENT, NO RESIDUAL, WITH JEVITY 1.2 AT 55ML/HR. GT STOMA COVERED WITH DRY DRESSING. TELE MONITOR ON WITH A READING OF SINUS RHYTHM 95 LEFT UPPER ARM MIDLINE IN PLACE PATENT WITH CLEAN DRESSING. WOUND CARE PROVIDED TO AFFECTED AREAS ORDERED. COLOSTOMY IN PLACE WITH BLACK LIQUID STOOL 200 OUTPUT. LEFT SOFT WRIST RESTRAINT IN PLACE, CIRCULATION WITHIN NORMAL, NO SKIN BREAKDOWN. VILLANUEVA IN PLACE DRAINING YELLOW URINE. REPOSITIONED. HOB ELEVATED SEMI FOWLERS POSITION BILATERAL HALF SIDE RAILS UPX2. BED IN LOW POSITION, LOCKED, WITH EXIT ALARM ON. CALL LIGHT IN REACH.
--- NOTE | 2022-06-05 07:15 | NUR ---
RN notes Received patient in bed. She is resting and is not in distress. Telemetry showed SR HR 79/min. SpO2 100% with Fio2 40% via tracheostomy(Ventilator). IV site is dry and intact. Jevity is running at 55mL/hr. Circulation is good with restraint use. Call zhou is placed within reach. Bed is locked and placed in the lowest position. All safety measures have been implemented. Will continue monitoring and care.
[2022-06-05 08:00] VITALS: BP 99/54
--- NOTE | 2022-06-05 08:44 | NUR ---
WOUND CARE CONSULT: RECEIVED CONSULT FOR G TUBE SITE REDNESS. DEFER TO SURGICAL TEAM CURRENTLY ON CASE. ALL SKIN PROTECTION MEASURES IN PLACE. MD IN AGREEMENT WITH PLAN OF CARE.
[2022-06-05] MEDS: METOCLOPRAMIDE HCL 10 MG/10 ML UDC GT SCH ×3 (08:56→16:12)
[2022-06-05] MEDS: MULTIVITAMINS,THERAGRAN 1 UDTAB TABLET GT SCH (08:57)
[2022-06-05] MEDS: MELOXICAM 7.5 MG TABLET GT SCH (08:57)
[2022-06-05] MEDS: busPIRone 5 MG TABLET GT SCH ×2 (08:57→16:12)
[2022-06-05] MEDS: CHLORHEXIDINE GLUCONATE 15 ML UDC MM SCH ×2 (08:58→16:12)
[2022-06-05] MEDS: DOCUSATE SODIUM LIQ 100 MG/10 ML UDC GT SCH (08:58)
[2022-06-05] MEDS: MUPIROCIN OINT 2% 22 GM TUBE NS SCH ×2 (08:58→22:08)
[2022-06-05] MEDS: THERAHONEY GEL 1.5 OZ TUBE TP SCH (08:59)
[2022-06-05] MEDS: Z GUARD REMEDY 4 OZ OINT TP SCH (08:59)
[2022-06-05] MEDS: METOPROLOL TARTRATE 25 MG TABLET GT SCH ×2 (09:00→22:07)
[2022-06-05] MEDS: ASPIRIN 81 MG TAB.CHEW GT SCH (09:01)
[2022-06-05 12:00] VITALS: BP 118/63
--- NOTE | 2022-06-05 12:30 | NUR ---
RN notes Checked patient's G-tube site with MILAN De León, noted erythema and possible signs of infection around the tube. ordered wound swab and was done.
[2022-06-05 16:00] VITALS: BP 125/72
[2022-06-05] MEDS: ENOXAPARIN SODIUM 40 MG/0.4 ML DISP.SYRIN SQ SCH (16:14)
--- NOTE | 2022-06-05 19:30 | NUR ---
RN opening notes Received patient in bed, on trach/vent, tolerating settings well. pt is non-verbal. She is resting and showing no s/sx of acute respi distress. On tele monitor showing SR, HR in the 80s sating at 100%. IV line noted on YUMIKO ML, dry and intact, sl. Pt on restraints on the L hand with L mitten. No circulation issues so far. Jevity is running at 55mL/hr. redness noted around the peg site, md aware. dressing reinforced with zguard. ostomy bag noted. All safety measures in place: bed locked in low position, bed alarm on, sr up x 3. Call zhou is placed within reach. Will continue to monitor pt t/o the night.
--- NOTE | 2022-06-05 19:37 | NUR ---
RN notes Patient is resting in bed. Facial expression is normal and not in distress. SpO2 100% with 40% oxygen given via ventilator. Telemetry showed SR. G-tube dressing has just been changed as ID doctor came and assess patient. Noted reducing leakage from G-tube. Circulation is good with restraint use. Call zhou is placed within reach. Bed is locked and placed in the lowest position. All safety measures have been implemented. Will endorse PM nurse to continue monitoring and care.
[2022-06-05 20:00] VITALS: BP 115/58
[2022-06-05] MEDS: ATORVASTATIN 40 MG TABLET GT SCH (22:07)
[2022-06-06] VITALS: BP 98/54
[2022-06-06] MEDS: JEVITY 1.2 CAL 1,000 ML BOTTLE GT PRN (02:39)
[2022-06-06 04:00] VITALS: BP 109/59
--- NOTE | 2022-06-06 05:13 | NUR ---
RN NOTE PT REMAINED STABLE T/O THE NIGHT. DUE MEDS GIVEN. NEEDS ATTENDED TO. PM CARE/WOUND CARE DONE. NO LEAKING NOTED ON G TUBE SITE. COLOSTOMY BAG CHANGED. TURNED AND REPOSITIONED. WILL ENDORSE TO AM SHIFT NURSE FOR ALBERTA.
[2022-06-06 08:00] VITALS: BP 100/63
--- NOTE | 2022-06-06 08:00 | NUR ---
television newscast director notes Patient is resting in bed. Facial expression is normal and not in distress. SpO2 100% with 40% oxygen given via ventilator. Telemetry showed SR.hr 78 G-tube dressing intact and small amt of leakage around g tube noted , keep hob elevated at all time, on g tube feeding as ordered ,no residual noted Circulation is good with restraint use. Call zhou is placed within reach. Bed is locked and placed in the lowest position. All safety measures have been implemented. continue monitoring , lt upper arm mid line in plce and flushed well
[2022-06-06] MEDS: ASPIRIN 81 MG TAB.CHEW GT SCH (08:40)
[2022-06-06] MEDS: CHLORHEXIDINE GLUCONATE 15 ML UDC MM SCH ×2 (08:40→16:09)
[2022-06-06] MEDS: DOCUSATE SODIUM LIQ 100 MG/10 ML UDC GT SCH (08:40)
[2022-06-06] MEDS: METOCLOPRAMIDE HCL 10 MG/10 ML UDC GT SCH ×3 (08:40→16:09)
[2022-06-06] MEDS: busPIRone 5 MG TABLET GT SCH ×2 (08:40→16:09)
[2022-06-06] MEDS: MULTIVITAMINS,THERAGRAN 1 UDTAB TABLET GT SCH (08:40)
[2022-06-06] MEDS: METOPROLOL TARTRATE 25 MG TABLET GT SCH (08:48)
[2022-06-06] MEDS: MELOXICAM 7.5 MG TABLET GT SCH (08:50)
[2022-06-06] MEDS: MUPIROCIN OINT 2% 22 GM TUBE NS SCH (08:51)
[2022-06-06] MEDS: Z GUARD REMEDY 4 OZ OINT TP SCH (08:52)
[2022-06-06] MEDS: THERAHONEY GEL 1.5 OZ TUBE TP SCH (08:52)
--- NOTE | 2022-06-06 10:38 | NUR ---
senior telecommunications engineer note called PT son regarding phone consent for blood transfusion, got response that he is coming here in 15 min., adair knott personally.
--- NOTE | 2022-06-06 10:39 | NUR ---
telemetry technician note rounds made all needs attended
[2022-06-06 12:00] VITALS: BP 107/61
--- NOTE | 2022-06-06 13:14 | NUR ---
REMELT PAN TANK OPERATOR NOTE TURN REPOSITION, TX ONE ON G TUBE SITE STILL LEAKAGE NOTED ,WILL CONT TO MONITOR
--- NOTE | 2022-06-06 14:14 | NUR ---
maintenance mechanic telephone note dr patel at bedside ok to discharge to snf , notified that still has leakage g tube stoma, ,and redness around g tube . still ok to discharge to snf
[2022-06-06] MEDS: ENOXAPARIN SODIUM 40 MG/0.4 ML DISP.SYRIN SQ SCH (15:51)
[2022-06-06 16:00] VITALS: BP 115/65
--- NOTE | 2022-06-06 18:11 | NUR ---
tele grout sewer line repairer note redness around g-tube, Doctor notified, PT in stable condition, waiting for ambulance to go for discharge to snf, son notified.
--- NOTE | 2022-06-06 20:37 | NUR ---
REJECTED ITEMS CLERK NOTES: PT NON-VERBAL. OPEN BOTH EYES. ON TRACH TO [facility] VENT SETTING: PT TOLERATED WELL. O2 SAT 100%. V/S STABLE. IV ACCESS ON ML REMOVED. TELE BOX REMOVED, NO FACIAL GRIMACING NOTED. NO ACUTE DISTRESS. TURNED OF FEEDING. GTUBE STILL COVERED WITH DRY DRESSING. VILLANUEVA CATHETER IN PLACE. DRAINING BY GRAVITY. COLOSTOMY BAG IN PLACE. REPORT GIVEN TO KAYA RN BY PREVIOUS SHIFT TERESA ALVES. ALL NEEDS MET AND ATTENDED. ALL PAPER WORK GIVEN TO THE AMBULANCE STAFF MEMBER. PT DISCHARGED TO [facility] AT [facility] VIA AMBULANCE IN FAIR CONDITION.
== END 2022-06-06 21:26 | DRG 466 ==
LOC: ER 16:26 → TELE1 05-28 00:38
PROVIDERS: ADMIT Internal Medicine; ATTEND Nurse Practitioner Acute Care
PROC: 5A1955Z Respiratory Ventilation, Greater than 96 Consecutive Hours (ICD-10-PCS; principal; 2022-05-28)
PROC: 05HA33Z Insertion of Infusion Device into Left Brachial Vein, Percutaneous Approach (ICD-10-PCS; 2022-05-28)
PROC: 0JB70ZZ Excision of Back Subcutaneous Tissue and Fascia, Open Approach (ICD-10-PCS; 2022-05-31)
PROC: 0DP67UZ Removal of Feeding Device from Stomach, Via Natural or Artificial Opening (ICD-10-PCS; 2022-06-01)
PROC: 0DH67UZ Insertion of Feeding Device into Stomach, Via Natural or Artificial Opening (ICD-10-PCS; 2022-06-01)
DX: N99.522 Malfunction of incontinent external stoma of urinary tract (principal); N17.0 Acute kidney failure with tubular necrosis; J96.20 Acute and chronic respiratory failure, unspecified whether with hypoxia or hypercapnia; G93.41 Metabolic encephalopathy; L89.154 Pressure ulcer of sacral region, stage 4; U07.1 COVID-19; D68.59 Other primary thrombophilia; Z99.11 Dependence on respirator [ventilator] status; K94.22 Gastrostomy infection; Z74.01 Bed confinement status; Z86.79 Personal history of other diseases of the circulatory system; I10 Essential (primary) hypertension; E66.9 Obesity, unspecified; D64.9 Anemia, unspecified; E78.5 Hyperlipidemia, unspecified; I69.351 Hemiplegia and hemiparesis following cerebral infarction affecting right dominant side; R13.10 Dysphagia, unspecified; Z78.9 Other specified health status; K57.30 Diverticulosis of large intestine without perforation or abscess without bleeding; B96.89 Other specified bacterial agents as the cause of diseases classified elsewhere; Y84.8 Other medical procedures as the cause of abnormal reaction of the patient, or of later complication, without mention of misadventure at the time of the procedure; Y92.129 Unspecified place in nursing home as the place of occurrence of the external cause; M62.461 Contracture of muscle, right lower leg; Z74.09 Other reduced mobility; B86 Scabies; Z22.322 Carrier or suspected carrier of Methicillin resistant Staphylococcus aureus; Y92.230 Patient room in hospital as the place of occurrence of the external cause
CPT/HCPCS: 31720; 36410; 36415; 71045-TC; 74018; 76770-TC; 80048-TC; 80053-TC; 81001; 83735-TC; 84100-TC; 85025-TC; 85610-TC; 86850-TC; 87081-TC; 87086-TC; 94003-TC; 94760-TC; 94762-TC; 94799-TC; A6253; A6403; A7526; C9803; G0378; J0692; J0696; J1650; J2765; J3490; J7030; J7042; J7050; J7060; J8597; Q9963; U0003

== ENCOUNTER 2023-06-02 10:10 | Inpatient (IN) | payer MEDICAID ==
[2023-06-02] VITALS (45 sets, daily range): BP systolic 96–135; BP diastolic 52–79; TEMP 98.3–98.9; O2SAT 97–100
[~2023-06-02] VITALS: Ht 160 cm; Wt 57.3 kg
[~2023-06-02 10:10] MED LIST: ACET-2605 GT; ACET-868 GT; ASPI-1169 GT; ATOR40TA GT; BISA10SU11 RC; BUSP5TAB3 GT; CHLO473M5 MM; DOCU50LI GT; HEPA50008 SQ; IPRA4AER IH; LEVO500P10 IV; MAGN400O6 GT; MELO-105 GT; METO25TA20 GT; MULT-447 GT; NUTR250L50 GT; PANT40SU GT
[2023-06-02] MEDS: IV NS 0.9% 1,000 ML BAG IV ONE (10:30)
[2023-06-02 10:54] LABS: BASOPHILS # (AUTO) 0.4 K/uL (0.0-0.2); BASOPHILS % (AUTO) 1.9 % (0.0-2.0); CALCIUM, SERUM 9.2 mg/dL (8.5-10.1); CARBON DIOXIDE 24 mmol/L (21-32); CHLORIDE 98 mmol/L (98-107); CREATININE 1.2 mg/dL (0.6-1.3); EOSINOPHILS # (AUTO) 0.1 K/uL (0.0-0.7); EOSINOPHILS % (AUTO) 0.6 % (0.0-6.0); GLUCOSE 111 mg/dL (74-106); HEMATOCRIT 34 % (33-45); HEMOGLOBIN 10.5 g/dL (11.5-14.8); LYMPHOCYTES # (AUTO) 0.4 K/uL (0.8-4.8); LYMPHOCYTES % (AUTO) 2.1 % (20.0-44.0); MEAN CORPUSCULAR HEMOGLOBIN 28 PG (26.0-33.0); MEAN CORPUSCULAR HGB CONC 31 g/dl (31.0-36.0); MEAN CORPUSCULAR VOLUME 89 fL (82-100); MONOCYTES # (AUTO) 0.7 K/uL (0.1-1.30); MONOCYTES % (AUTO) 3.1 % (2.0-12.0); NEUTROPHILS # (AUTO) 19.5 K/uL (1.8-8.9); NEUTROPHILS % (AUTO) 92.3 % (43.0-81.0); PLATELET COUNT (AUTO) 314 K/uL (150-450); POTASSIUM 4.2 mmol/L (3.5-5.1); RED BLOOD CELL COUNT(AUTO) 3.76 MIL/uL (4.0-5.2); RED CELL DISTRIBUTION WIDTH 18.3 % (11.5-15.0); SODIUM SERUM 132 mmol/L (136-145); UREA NITROGEN, BLOOD 38 mg/dL (7-18); WHITE BLOOD COUNT (AUTO) 21.1 K/uL (4.3-11.0)
[2023-06-02] MEDS ORDERED: ZINC50TA65 GT (10:56)
[2023-06-02] MEDS ORDERED: ASCO-340 GT (10:56)
[2023-06-02] MEDS ORDERED: HYDR-4076 GT (10:56)
[2023-06-02] MEDS ORDERED: CLOB15CR4 TP (10:56)
[2023-06-02] MEDS ORDERED: FAMO-131 GT (10:56)
[2023-06-02] MEDS ORDERED: NA P133E RC (10:56)
[2023-06-02] MEDS ORDERED: AMIN30LI2 GT (10:56)
[2023-06-02] MEDS ORDERED: METO5SOL GT (10:56)
[2023-06-02] MEDS ORDERED: ZINC57OI4 TP (10:56)
[2023-06-02] MEDS ORDERED: IPRA4AER IH (10:56)
[2023-06-02] MEDS ORDERED: CALC60CR4 TP (10:56)
[2023-06-02 11:00] LABS: ALANINE AMINOTRANSFERASE 56 U/L (12-78); ALBUMIN 2.9 g/dL (3.4-5.0); ALKALINE PHOSPHATASE 193 U/L (46-116); ASPARTATE AMINOTRANSFERASE 78 U/L (15-37); BILIRUBIN,DIRECT 0.2 mg/dL (0.0-0.2); BILIRUBIN,TOTAL 0.4 mg/dL (0.2-1.0); TOTAL PROTEIN, SERUM 8.2 g/dL (6.4-8.2)
[2023-06-02 11:05] LABS: INR 1.05 (0.91-1.10); PARTIAL THROMBOPLASTIN TIME 26.4 SEC (24.3-34.3); PROTHROMBIN TIME 11.1 SECS (9.2-11.1)
[2023-06-02 11:21] LABS: LACTIC ACID 3.3 mmol/L (0.4-2.0)
[2023-06-02] MEDS: CEFEPIME 2 GM in IV D5W 50 ML IV ONE (11:25)
[2023-06-02] MEDS ORDERED: VANCOMYCIN 1 GM in IV D5W 250 ML IV ONE (11:30)
[2023-06-02] MEDS: NOREPINEPHRINE 8 MG in IV NS 0.9% 242 ML IV PRN ×2 (12:00→16:53)
[2023-06-02 13:07] LABS: APPEARANCE,URINE CLOUDY (CLEAR); BILIRUBIN,URINE NEGATIVE (NEGATIVE); BLOOD, URINE 3+ Ery/uL (NEGATIVE); COLOR,URINE DARK YELLOW (YELLOW); KETONES,URINE TRACE mg/dL (NEGATIVE); LEUKOCYTE ESTERASE ,URINE 3+ (NEGATIVE); NITRITE, URINE NEGATIVE (NEGATIVE); PROTEIN,URINE 2+ mg/dl (NEGATIVE); UGLUCOSE NEGATIVE (NEGATIVE); UROBILINOGEN,URINE 0.2 EU/dL (0.2)
[2023-06-02 13:09] LABS: ADD URINE CULTURE YES; BACTERIA,URINE Many /HPF (None Seen); RBC,URINE 81-100 /HPF (0-2); SQUAMOUS EPITHELIAL CELL,UR Many /HPF (None Seen); WBC,URINE TOO NUMEROUS TO COUN /HPF (0-3)
[2023-06-02] MEDS ORDERED: NOREPINEPHRINE 8 MG in IV NS 0.9% 242 ML IV PRN (14:00)
[2023-06-02] MEDS ORDERED: ONDANSETRON HCL/PF 4 MG/2 ML VIAL IVP PRN (14:00)
[2023-06-02] MEDS ORDERED: Z GUARD REMEDY 4 OZ OINT TP PRN (14:00)
[2023-06-02] MEDS: IV NS 0.9% 1,000 ML IV PRN (14:30)
[2023-06-02] MEDS: ENOXAPARIN SODIUM 40 MG/0.4 ML DISP.SYRIN SQ SCH (15:23)
[2023-06-02] MEDS: VANCOMYCIN 1.25 GM in IV D5W 250 ML IV ONE (15:41)
[2023-06-02] MEDS: CEFEPIME 2 GM in IV D5W 100 ML IV SCH (21:01)
[2023-06-02] MEDS: Z GUARD REMEDY 4 OZ OINT TP SCH (21:01)
[2023-06-02] MEDS: ATORVASTATIN 40 MG TABLET GT SCH (22:13)
[2023-06-03] VITALS (45 sets, daily range): BP systolic 95–142; BP diastolic 54–74; TEMP 98.2–99; O2SAT 95–100
[2023-06-03 05:19] LABS: BASOPHILS % (AUTO) 0.3 % (0.0-2.0); EOSINOPHILS # (AUTO) 0.3 K/uL (0.0-0.7); EOSINOPHILS % (AUTO) 3.1 % (0.0-6.0); HEMATOCRIT 27 % (33-45); HEMOGLOBIN 8.7 g/dL (11.5-14.8); LYMPHOCYTES # (AUTO) 0.7 K/uL (0.8-4.8); LYMPHOCYTES % (AUTO) 6.7 % (20.0-44.0); MEAN CORPUSCULAR HEMOGLOBIN 30 PG (26.0-33.0); MEAN CORPUSCULAR HGB CONC 33 g/dl (31.0-36.0); MEAN CORPUSCULAR VOLUME 91 fL (82-100); MONOCYTES # (AUTO) 0.7 K/uL (0.1-1.30); MONOCYTES % (AUTO) 7.3 % (2.0-12.0); NEUTROPHILS # (AUTO) 8.4 K/uL (1.8-8.9); NEUTROPHILS % (AUTO) 82.6 % (43.0-81.0); PLATELET COUNT (AUTO) 228 K/uL (150-450); RED BLOOD CELL COUNT(AUTO) 2.91 MIL/uL (4.0-5.2); RED CELL DISTRIBUTION WIDTH 18.2 % (11.5-15.0); WHITE BLOOD COUNT (AUTO) 10.2 K/uL (4.3-11.0)
[2023-06-03 05:49] LABS: CALCIUM, SERUM 8.2 mg/dL (8.5-10.1); CARBON DIOXIDE 24 mmol/L (21-32); CHLORIDE 107 mmol/L (98-107); CREATININE 0.7 mg/dL (0.6-1.3); GLUCOSE 113 mg/dL (74-106); PHOSPHORUS 3.3 mg/dL (2.5-4.9); POTASSIUM 3.8 mmol/L (3.5-5.1); SODIUM SERUM 139 mmol/L (136-145); UREA NITROGEN, BLOOD 22 mg/dL (7-18)
[2023-06-03 05:50] LABS: IRON, SERUM 17 ug/dl (50-175); TOTAL IRON BINDING CAPACITY 172 ug/dl (250-450)
[2023-06-03 06:03] LABS: FERRITIN 900 ng/mL (8-388)
[2023-06-03] MEDS: JEVITY 1.2 CAL 1,000 ML BOTTLE GT SCH (06:14)
[2023-06-03] MEDS: DOCUSATE SODIUM LIQ 100 MG/10 ML UDC GT SCH (08:38)
[2023-06-03] MEDS: PANTOPRAZOLE 40 MG/PACK PACK GT SCH (08:38)
[2023-06-03] MEDS: PROSOURCE / PROSTAT (PYXIS) 30 ML UDC GT SCH (08:38)
[2023-06-03] MEDS: ASCORBIC ACID 500 MG TABLET GT SCH (08:38)
[2023-06-03] MEDS: CHLORHEXIDINE GLUCONATE 15 ML UDC MM SCH (08:38)
[2023-06-03] MEDS: METOCLOPRAMIDE HCL 5 MG/5 ML UDC GT SCH (08:39)
[2023-06-03] MEDS: ZINC SULFATE 220 MG CAPSULE GT SCH (08:39)
[2023-06-03] MEDS: MULTIVIT W/MINERALS 1 TAB TABLET GT SCH (08:39)
[2023-06-03] MEDS: ASPIRIN 81 MG TAB.CHEW GT SCH (08:39)
[2023-06-03 14:09] LABS: HIV-1 p24 ANTIGEN NON REACTIVE (NONREACTIVE); HIV-1/2 ANTIBODY NON REACTIVE (NONREACTIVE)
[2023-06-03] MEDS: VANCOMYCIN 1 GM in IV D5W 250 ML IV SCH (15:46)
[2023-06-03] MEDS: METOCLOPRAMIDE HCL 10 MG/10 ML UDC GT SCH (17:19)
[2023-06-03] MEDS: ACETAMINOPHEN 650 MG/20.3 ML UDC NG PRN (22:57)
[2023-06-04] VITALS (13 sets, daily range): BP systolic 101–129; BP diastolic 55–66; TEMP 97.1–99; O2SAT 97–99
[2023-06-04 07:28] LABS: BASOPHILS % (AUTO) 0.3 % (0.0-2.0); EOSINOPHILS # (AUTO) 0.5 K/uL (0.0-0.7); EOSINOPHILS % (AUTO) 8.1 % (0.0-6.0); HEMATOCRIT 27 % (33-45); HEMOGLOBIN 8.5 g/dL (11.5-14.8); LYMPHOCYTES # (AUTO) 0.9 K/uL (0.8-4.8); LYMPHOCYTES % (AUTO) 13.1 % (20.0-44.0); MEAN CORPUSCULAR HEMOGLOBIN 29 PG (26.0-33.0); MEAN CORPUSCULAR HGB CONC 31 g/dl (31.0-36.0); MEAN CORPUSCULAR VOLUME 94 fL (82-100); MONOCYTES # (AUTO) 0.7 K/uL (0.1-1.30); MONOCYTES % (AUTO) 10.5 % (2.0-12.0); NEUTROPHILS # (AUTO) 4.6 K/uL (1.8-8.9); PLATELET COUNT (AUTO) 186 K/uL (150-450); RED BLOOD CELL COUNT(AUTO) 2.92 MIL/uL (4.0-5.2); RED CELL DISTRIBUTION WIDTH 18.1 % (11.5-15.0); WHITE BLOOD COUNT (AUTO) 6.7 K/uL (4.3-11.0)
[2023-06-04 08:13] LABS: CALCIUM, SERUM 8.4 mg/dL (8.5-10.1); CREATININE 0.6 mg/dL (0.6-1.3); MAGNESIUM 2.3 mg/dL (1.8-2.4); PHOSPHORUS 2.9 mg/dL (2.5-4.9); POTASSIUM 3.5 mmol/L (3.5-5.1)
[2023-06-04] MEDS: DAKINS QUARTER STRENGTH (0.125%) 480 ML BOTTLE TOP SCH (13:54)
[2023-06-04] MEDS: VANCOMYCIN HCL 0.75 GM in IV D5W 250 ML IV SCH (13:56)
[2023-06-04] MEDS: THERAHONEY GEL 1.5 OZ TUBE TP SCH (17:30)
[2023-06-04] MEDS: MUPIROCIN OINT 2% 22 GM TUBE NS SCH (20:16)
[2023-06-05] VITALS (18 sets, daily range): BP systolic 96–144; BP diastolic 62–80; TEMP 98.1–99.1; O2SAT 94–100
[2023-06-05 06:25] LABS: CALCIUM, SERUM 8.1 mg/dL (8.5-10.1); CARBON DIOXIDE 23 mmol/L (21-32); CHLORIDE 105 mmol/L (98-107); CREATININE 0.5 mg/dL (0.6-1.3); GLUCOSE 101 mg/dL (74-106); POTASSIUM 3.5 mmol/L (3.5-5.1); SODIUM SERUM 139 mmol/L (136-145); UREA NITROGEN, BLOOD 8 mg/dL (7-18)
[2023-06-05] MEDS: ARGININE/GLUTAMINE/CALCIUM BMB 1 EACH POWD.PACK GT SCH (17:22)
[2023-06-05] MEDS: MIDAZOLAM HCL 5 MG/5ML VIAL IV ONE (22:00)
[2023-06-05] MEDS: PROPOFOL 10MG/ML 50ML 50 ML IV PRN (22:15)
[2023-06-05] MEDS: PROPOFOL 100 ML ONE (22:33)
[2023-06-05] MEDS: VANCOMYCIN 500 MG in IV D5W 100 ML IV SCH (22:58)
[2023-06-05 23:42] LABS: ABG BASE EXCESS -8.4 mmol/L; ABG PCO2 37.3 mmHg (35.0-45.0); ABG PH 7.289 (7.350-7.450); ABG PO2 67.9 mmHg (75.0-100.0); ABG TOTAL HEMOGLOBIN 9.9 G/dL (12.0-16.0); O2Hb 89.1 % (94.0-97.0); PEEP,BG 5 cm H2O; SITE, ABG Right Radial; VENT MODE, BG AC14 VT400 50% PEEP+5; VT, ABG 400 mL
[2023-06-06] VITALS (97 sets, daily range): BP systolic 91–139; BP diastolic 47–73; TEMP 97.7–99.1; O2SAT 92–100
[2023-06-06] MEDS: JEVITY 1.2 CAL 1,000 ML BOTTLE GT SCH (02:04)
[2023-06-06 03:58] LABS: BASOPHILS % (AUTO) 0.1 % (0.0-2.0); EOSINOPHILS # (AUTO) 0.1 K/uL (0.0-0.7); HEMATOCRIT 24 % (33-45); LYMPHOCYTES # (AUTO) 0.3 K/uL (0.8-4.8); LYMPHOCYTES % (AUTO) 3.2 % (20.0-44.0); MEAN CORPUSCULAR HEMOGLOBIN 30 PG (26.0-33.0); MEAN CORPUSCULAR HGB CONC 33 g/dl (31.0-36.0); MEAN CORPUSCULAR VOLUME 91 fL (82-100); MONOCYTES # (AUTO) 0.8 K/uL (0.1-1.30); MONOCYTES % (AUTO) 6.9 % (2.0-12.0); NEUTROPHILS # (AUTO) 9.7 K/uL (1.8-8.9); NEUTROPHILS % (AUTO) 88.8 % (43.0-81.0); PLATELET COUNT (AUTO) 200 K/uL (150-450); RED BLOOD CELL COUNT(AUTO) 2.67 MIL/uL (4.0-5.2); RED CELL DISTRIBUTION WIDTH 17.7 % (11.5-15.0); WHITE BLOOD COUNT (AUTO) 10.9 K/uL (4.3-11.0)
[2023-06-06 04:13] LABS: CALCIUM, SERUM 7.9 mg/dL (8.5-10.1); CREATININE 0.7 mg/dL (0.6-1.3); MAGNESIUM 1.9 mg/dL (1.8-2.4); PHOSPHORUS 4.6 mg/dL (2.5-4.9); POTASSIUM 3.4 mmol/L (3.5-5.1)
[2023-06-06 05:43] LABS: ABG BASE EXCESS -4.8 mmol/L; ABG OXYGEN SATURATION 98.4 % (92.0-98.5); ABG PCO2 36.3 mmHg (35.0-45.0); ABG PO2 131.3 mmHg (75.0-100.0); ABG TOTAL HEMOGLOBIN 10.1 G/dL (12.0-16.0); AaDO2 256.6 mmHg; COHb 0.4 % (0.5-1.5); MetHb 0.1 % (0.0-1.5); O2Hb 97.9 % (94.0-97.0); PEEP,BG 5 cm H2O; SITE, ABG Right Radial; VENT MODE, BG AC14 VT400 60% PEEP+5; VT, ABG 400 mL
[2023-06-06] MEDS ORDERED: ETOMIDATE 2 MG/ML VIAL IV ONE (08:49)
[2023-06-06] MEDS ORDERED: SUCCINYLCHOLINE CHLORIDE 20 MG/ML VIAL IV ONE (08:49)
[2023-06-06] MEDS ORDERED: EPINEPHRINE (1:10,000) SYRINGE 1 MG/10 ML DISP.SYRIN IVP ONE (09:00)
[2023-06-06] MEDS: POTASSIUM CHLORIDE 20 MEQ POWDER PACKET NG SCH (10:45)
[2023-06-06] MEDS: PROPOFOL 100 ML IV PRN (19:55)
[2023-06-07] VITALS (45 sets, daily range): BP systolic 108–152; BP diastolic 53–98; TEMP 97.4–98.7; O2SAT 94–100
[2023-06-07 04:21] LABS: BASOPHILS % (AUTO) 0.3 % (0.0-2.0); EOSINOPHILS % (AUTO) 12.1 % (0.0-6.0); HEMATOCRIT 26 % (33-45); LYMPHOCYTES # (AUTO) 0.9 K/uL (0.8-4.8); LYMPHOCYTES % (AUTO) 11.7 % (20.0-44.0); MEAN CORPUSCULAR HEMOGLOBIN 29 PG (26.0-33.0); MEAN CORPUSCULAR HGB CONC 31 g/dl (31.0-36.0); MEAN CORPUSCULAR VOLUME 92 fL (82-100); MONOCYTES # (AUTO) 0.6 K/uL (0.1-1.30); MONOCYTES % (AUTO) 7.1 % (2.0-12.0); NEUTROPHILS # (AUTO) 5.5 K/uL (1.8-8.9); NEUTROPHILS % (AUTO) 68.8 % (43.0-81.0); PLATELET COUNT (AUTO) 207 K/uL (150-450); RED BLOOD CELL COUNT(AUTO) 2.78 MIL/uL (4.0-5.2); RED CELL DISTRIBUTION WIDTH 18.1 % (11.5-15.0)
[2023-06-07 04:40] LABS: CALCIUM, SERUM 8.1 mg/dL (8.5-10.1); CREATININE 0.7 mg/dL (0.6-1.3); PHOSPHORUS 2.5 mg/dL (2.5-4.9); POTASSIUM 3.5 mmol/L (3.5-5.1)
[2023-06-07 13:22] LABS: ABG BASE EXCESS -6.1 mmol/L; ABG OXYGEN SATURATION 97.2 % (92.0-98.5); ABG PCO2 28.8 mmHg (35.0-45.0); ABG PH 7.407 (7.350-7.450); ABG PO2 92.9 mmHg (75.0-100.0); ABG TOTAL HEMOGLOBIN 8.9 G/dL (12.0-16.0); AaDO2 159.2 mmHg; COHb 1.3 % (0.5-1.5); MetHb 0.3 % (0.0-1.5); O2Hb 95.6 % (94.0-97.0); SITE, ABG Right Radial; VENT MODE, BG CPAP PS 10 +5 40%
[2023-06-07] MEDS: VANCOMYCIN 0.75 GM in IV D5W 250 ML IV SCH (22:05)
[2023-06-08] VITALS (29 sets, daily range): BP systolic 120–160; BP diastolic 64–109; TEMP 98.3–99; O2SAT 94–100
[2023-06-08 05:22] LABS: CALCIUM, SERUM 8.3 mg/dL (8.5-10.1); CARBON DIOXIDE 24 mmol/L (21-32); CHLORIDE 107 mmol/L (98-107); CREATININE 0.5 mg/dL (0.6-1.3); GLUCOSE 111 mg/dL (74-106); POTASSIUM 3.3 mmol/L (3.5-5.1); SODIUM SERUM 139 mmol/L (136-145); UREA NITROGEN, BLOOD 15 mg/dL (7-18)
[2023-06-08 09:59] LABS: ABG PCO2 32.3 mmHg (35.0-45.0); ABG PH 7.409 (7.350-7.450); ABG PO2 81.6 mmHg (75.0-100.0); ABG TOTAL HEMOGLOBIN 9.4 G/dL (12.0-16.0); AaDO2 202.5 mmHg; COHb 1.1 % (0.5-1.5); MetHb 0.3 % (0.0-1.5); O2Hb 94.7 % (94.0-97.0); SITE, ABG Right Radial; VENT MODE, BG NASAL CANNULA
[2023-06-08] MEDS: POTASSIUM CHLORIDE 20 MEQ POWDER PACKET NG SCH (10:38)
[2023-06-08] MEDS: VITAMINS A AND D 56.7 GM TUBE TP SCH (17:20)
[2023-06-09] VITALS (26 sets, daily range): BP systolic 88–167; BP diastolic 45–101; TEMP 97.6–98; O2SAT 93–100
[2023-06-09 05:53] LABS: CALCIUM, SERUM 8.5 mg/dL (8.5-10.1); CARBON DIOXIDE 25 mmol/L (21-32); CHLORIDE 108 mmol/L (98-107); CREATININE 0.5 mg/dL (0.6-1.3); GLUCOSE 110 mg/dL (74-106); POTASSIUM 3.7 mmol/L (3.5-5.1); SODIUM SERUM 142 mmol/L (136-145); UREA NITROGEN, BLOOD 28 mg/dL (7-18)
[2023-06-09 09:13] LABS: ABG BASE EXCESS -0.8 mmol/L; ABG OXYGEN SATURATION 97.4 % (92.0-98.5); ABG PCO2 33.9 mmHg (35.0-45.0); ABG PH 7.446 (7.350-7.450); ABG TOTAL HEMOGLOBIN 9.9 G/dL (12.0-16.0); AaDO2 151.2 mmHg; COHb 0.6 % (0.5-1.5); MetHb 0.3 % (0.0-1.5); O2Hb 96.5 % (94.0-97.0); SITE, ABG Right Radial; VENT MODE, BG NASAL CANNULA
[2023-06-10] VITALS (31 sets, daily range): BP systolic 119–157; BP diastolic 65–83; TEMP 97.2–98.5; O2SAT 88–100
[2023-06-10 05:14] LABS: BASOPHILS % (AUTO) 0.4 % (0.0-2.0); EOSINOPHILS # (AUTO) 1.3 K/uL (0.0-0.7); EOSINOPHILS % (AUTO) 15.7 % (0.0-6.0); HEMATOCRIT 26 % (33-45); HEMOGLOBIN 8.1 g/dL (11.5-14.8); LYMPHOCYTES # (AUTO) 1.1 K/uL (0.8-4.8); LYMPHOCYTES % (AUTO) 13.5 % (20.0-44.0); MEAN CORPUSCULAR HEMOGLOBIN 29 PG (26.0-33.0); MEAN CORPUSCULAR HGB CONC 31 g/dl (31.0-36.0); MEAN CORPUSCULAR VOLUME 92 fL (82-100); MONOCYTES # (AUTO) 0.7 K/uL (0.1-1.30); MONOCYTES % (AUTO) 8.5 % (2.0-12.0); NEUTROPHILS # (AUTO) 5.2 K/uL (1.8-8.9); NEUTROPHILS % (AUTO) 61.9 % (43.0-81.0); PLATELET COUNT (AUTO) 254 K/uL (150-450); RED BLOOD CELL COUNT(AUTO) 2.79 MIL/uL (4.0-5.2); RED CELL DISTRIBUTION WIDTH 18.4 % (11.5-15.0); WHITE BLOOD COUNT (AUTO) 8.4 K/uL (4.3-11.0)
[2023-06-10 05:25] LABS: CALCIUM, SERUM 7.9 mg/dL (8.5-10.1); CREATININE 0.6 mg/dL (0.6-1.3); MAGNESIUM 1.7 mg/dL (1.8-2.4); PHOSPHORUS 2.7 mg/dL (2.5-4.9); POTASSIUM 3.5 mmol/L (3.5-5.1)
[2023-06-10] MEDS: MIDAZOLAM HCL 2 MG/2ML VIAL ONE (09:17)
[2023-06-10] MEDS: MAGNESIUM OXIDE 400 MG TABLET PO ONE (10:41)
[2023-06-10] MEDS: VITAMINS A AND D 56.7 GM TUBE TP SCH (18:07)
[2023-06-10] MEDS: VANCOMYCIN 1 GM in IV D5W 250ml IV SCH (18:07)
[2023-06-10] MEDS: METOCLOPRAMIDE HCL 10 MG/10 ML UDC GT SCH (18:07)
[2023-06-10] MEDS: ARGININE/GLUTAMINE/CALCIUM BMB 1 EACH POWD.PACK GT SCH (21:44)
[2023-06-10] MEDS: CHLORHEXIDINE GLUCONATE 15 ML UDC MM SCH (21:45)
[2023-06-10] MEDS: PROSOURCE / PROSTAT (PYXIS) 30 ML UDC GT SCH (21:52)
[2023-06-11] VITALS (24 sets, daily range): BP systolic 112–151; BP diastolic 58–79; TEMP 97.4–99.6; O2SAT 86–99
[2023-06-11 05:10] LABS: CALCIUM, SERUM 8.5 mg/dL (8.5-10.1); CARBON DIOXIDE 28 mmol/L (21-32); CHLORIDE 109 mmol/L (98-107); CREATININE 0.5 mg/dL (0.6-1.3); GLUCOSE 118 mg/dL (74-106); POTASSIUM 3.7 mmol/L (3.5-5.1); SODIUM SERUM 145 mmol/L (136-145); UREA NITROGEN, BLOOD 25 mg/dL (7-18)
[2023-06-11] MEDS: FUROSEMIDE 20 MG/2 ML VIAL IV ONE (11:26)
[2023-06-12] VITALS (39 sets, daily range): BP systolic 122–150; BP diastolic 59–79; TEMP 98.5–98.9; O2SAT 87–99
[2023-06-12 03:56] LABS: BASOPHILS # (AUTO) 0.1 K/uL (0.0-0.2); BASOPHILS % (AUTO) 0.6 % (0.0-2.0); EOSINOPHILS # (AUTO) 1.2 K/uL (0.0-0.7); EOSINOPHILS % (AUTO) 13.6 % (0.0-6.0); HEMATOCRIT 28 % (33-45); HEMOGLOBIN 8.8 g/dL (11.5-14.8); LYMPHOCYTES # (AUTO) 1.1 K/uL (0.8-4.8); LYMPHOCYTES % (AUTO) 12.1 % (20.0-44.0); MEAN CORPUSCULAR HEMOGLOBIN 29 PG (26.0-33.0); MEAN CORPUSCULAR HGB CONC 32 g/dl (31.0-36.0); MEAN CORPUSCULAR VOLUME 92 fL (82-100); MONOCYTES # (AUTO) 0.7 K/uL (0.1-1.30); MONOCYTES % (AUTO) 8.1 % (2.0-12.0); NEUTROPHILS # (AUTO) 5.9 K/uL (1.8-8.9); NEUTROPHILS % (AUTO) 65.6 % (43.0-81.0); PLATELET COUNT (AUTO) 292 K/uL (150-450); RED BLOOD CELL COUNT(AUTO) 3.02 MIL/uL (4.0-5.2); RED CELL DISTRIBUTION WIDTH 18.6 % (11.5-15.0)
[2023-06-12 04:12] LABS: CALCIUM, SERUM 8.4 mg/dL (8.5-10.1); CREATININE 0.6 mg/dL (0.6-1.3); MAGNESIUM 2.3 mg/dL (1.8-2.4); PHOSPHORUS 3.7 mg/dL (2.5-4.9); POTASSIUM 3.7 mmol/L (3.5-5.1)
[2023-06-13] VITALS (62 sets, daily range): BP systolic 97–154; BP diastolic 59–83; TEMP 98.4–99.5; O2SAT 91–100
[2023-06-13 05:19] LABS: CALCIUM, SERUM 8.4 mg/dL (8.5-10.1); CARBON DIOXIDE 31 mmol/L (21-32); CHLORIDE 108 mmol/L (98-107); CREATININE 0.7 mg/dL (0.6-1.3); GLUCOSE 118 mg/dL (74-106); POTASSIUM 3.7 mmol/L (3.5-5.1); SODIUM SERUM 145 mmol/L (136-145); UREA NITROGEN, BLOOD 23 mg/dL (7-18)
[2023-06-13] MEDS: PROPOFOL 100 ML IV PRN (09:24)
[2023-06-13] MEDS ORDERED: PROPOFOL 10MG/ML 50ML 50 ML IV PRN (09:30)
[2023-06-13] MEDS ORDERED: SUCCINYLCHOLINE CHLORIDE 20 MG/ML VIAL IV ONE (11:34)
[2023-06-13] MEDS ORDERED: ETOMIDATE 2 MG/ML VIAL IV ONE (11:34)
[2023-06-13] MEDS: NYSTATIN/TRIAMCIN CREAM 15 GM TUBE TP SCH (13:31)
[2023-06-14] VITALS (75 sets, daily range): BP systolic 93–148; BP diastolic 53–93; TEMP 97.6–99.5; O2SAT 95–100
[2023-06-14 04:24] LABS: CALCIUM, SERUM 8.9 mg/dL (8.5-10.1); CREATININE 0.8 mg/dL (0.6-1.3); POTASSIUM 3.8 mmol/L (3.5-5.1)
[2023-06-14] MEDS: ROCURONIUM BROMIDE 50 MG/5 ML IV ONE (13:30)
[2023-06-14] MEDS ORDERED: ROCURONIUM BROMIDE 50 MG/5 ML IV ONE (21:03)
[2023-06-14] MEDS ORDERED: PROPOFOL 200 MG/20 ML VIAL IV ONE (21:03)
[2023-06-15] VITALS (24 sets, daily range): BP systolic 110–150; BP diastolic 59–78; TEMP 97.7–101; O2SAT 95–100
[2023-06-15 05:40] LABS: CALCIUM, SERUM 8.4 mg/dL (8.5-10.1); CARBON DIOXIDE 29 mmol/L (21-32); CHLORIDE 110 mmol/L (98-107); CREATININE 0.8 mg/dL (0.6-1.3); GLUCOSE 155 mg/dL (74-106); POTASSIUM 3.9 mmol/L (3.5-5.1); SODIUM SERUM 147 mmol/L (136-145); UREA NITROGEN, BLOOD 41 mg/dL (7-18)
[2023-06-15] MEDS ORDERED: IV NS 0.9% 1,000 ML BAG IV PRN (19:00)
[2023-06-15] MEDS: IV NS 0.9% 1,000 ML IV PRN (19:26)
[2023-06-15] MEDS: MEROPENEM 1 G in IV NS 0.9% 100 ML IV ONE (23:17)
[2023-06-15] MEDS: MEROPENEM 500MG/NS 50 ML PB IV ONE (23:18)
[2023-06-16] VITALS (12 sets, daily range): BP systolic 122–139; BP diastolic 65–78; TEMP 98.5–100.2; O2SAT 56–98
[2023-06-16] MEDS: VANCOMYCIN 1 GM in IV D5W 250ml IV ONE (00:39)
[2023-06-16] MEDS: VANCOMYCIN 1 GM /D5W 250 ML PB IV ONE (00:40)
[2023-06-16] MEDS: ACETAMINOPHEN 650 MG/SUPP.RECT RC PRN (02:15)
[2023-06-16 06:31] LABS: BASOPHILS % (AUTO) 0.3 % (0.0-2.0); EOSINOPHILS # (AUTO) 0.5 K/uL (0.0-0.7); EOSINOPHILS % (AUTO) 4.4 % (0.0-6.0); HEMATOCRIT 30 % (33-45); HEMOGLOBIN 9.1 g/dL (11.5-14.8); LYMPHOCYTES # (AUTO) 0.9 K/uL (0.8-4.8); LYMPHOCYTES % (AUTO) 8.6 % (20.0-44.0); MEAN CORPUSCULAR HEMOGLOBIN 29 PG (26.0-33.0); MEAN CORPUSCULAR HGB CONC 30 g/dl (31.0-36.0); MEAN CORPUSCULAR VOLUME 97 fL (82-100); MONOCYTES # (AUTO) 0.7 K/uL (0.1-1.30); MONOCYTES % (AUTO) 6.1 % (2.0-12.0); NEUTROPHILS # (AUTO) 8.6 K/uL (1.8-8.9); NEUTROPHILS % (AUTO) 80.6 % (43.0-81.0); PLATELET COUNT (AUTO) 267 K/uL (150-450); RED BLOOD CELL COUNT(AUTO) 3.15 MIL/uL (4.0-5.2); RED CELL DISTRIBUTION WIDTH 18.7 % (11.5-15.0); WHITE BLOOD COUNT (AUTO) 10.7 K/uL (4.3-11.0)
[2023-06-16 06:38] LABS: INR 1.13 (0.91-1.10); PROTHROMBIN TIME 11.9 SECS (9.2-11.1)
[2023-06-16] MEDS: MEROPENEM 1 G in IV NS 0.9% 100 ML IV SCH (08:02)
[2023-06-16] MEDS ORDERED: IV D5W 1,000 ML IV ONE (10:00)
[2023-06-16] MEDS ORDERED: POTASSIUM CL. PREMIX PERIPHER. 50 ML IV SCH (10:00)
[2023-06-16] MEDS: VANCOMYCIN 0.75 GM in IV D5W 250 ML IV SCH (23:18)
[2023-06-17] VITALS (11 sets, daily range): BP systolic 124–150; BP diastolic 65–87; TEMP 98.1–100.4; O2SAT 95–96
[2023-06-17 05:45] LABS: BASOPHILS % (AUTO) 0.6 % (0.0-2.0); EOSINOPHILS # (AUTO) 1.1 K/uL (0.0-0.7); EOSINOPHILS % (AUTO) 14.2 % (0.0-6.0); HEMATOCRIT 29 % (33-45); HEMOGLOBIN 8.7 g/dL (11.5-14.8); LYMPHOCYTES % (AUTO) 12.3 % (20.0-44.0); MEAN CORPUSCULAR HEMOGLOBIN 28 PG (26.0-33.0); MEAN CORPUSCULAR HGB CONC 30 g/dl (31.0-36.0); MEAN CORPUSCULAR VOLUME 95 fL (82-100); MONOCYTES # (AUTO) 0.4 K/uL (0.1-1.30); MONOCYTES % (AUTO) 5.5 % (2.0-12.0); NEUTROPHILS # (AUTO) 5.2 K/uL (1.8-8.9); NEUTROPHILS % (AUTO) 67.4 % (43.0-81.0); PLATELET COUNT (AUTO) 257 K/uL (150-450); RED BLOOD CELL COUNT(AUTO) 3.06 MIL/uL (4.0-5.2); RED CELL DISTRIBUTION WIDTH 18.6 % (11.5-15.0); WHITE BLOOD COUNT (AUTO) 7.7 K/uL (4.3-11.0)
[2023-06-17 06:12] LABS: CALCIUM, SERUM 8.4 mg/dL (8.5-10.1); CREATININE 0.6 mg/dL (0.6-1.3); MAGNESIUM 2.4 mg/dL (1.8-2.4); PHOSPHORUS 2.5 mg/dL (2.5-4.9); POTASSIUM 3.6 mmol/L (3.5-5.1)
[2023-06-18] VITALS (12 sets, daily range): BP systolic 112–147; BP diastolic 68–112; TEMP 97.3–100.2; O2SAT 92–97
[2023-06-18 08:23] LABS: CALCIUM, SERUM 8.2 mg/dL (8.5-10.1); CARBON DIOXIDE 21 mmol/L (21-32); CHLORIDE 109 mmol/L (98-107); CREATININE 0.3 mg/dL (0.6-1.3); GLUCOSE 115 mg/dL (74-106); MAGNESIUM 2.5 mg/dL (1.8-2.4); PHOSPHORUS 2.1 mg/dL (2.5-4.9); POTASSIUM 5.8 mmol/L (3.5-5.1); SODIUM SERUM 139 mmol/L (136-145); UREA NITROGEN, BLOOD 29 mg/dL (7-18)
[2023-06-18] MEDS: VANCOMYCIN 500 MG in IV D5W 100ml IV SCH (11:17)
[2023-06-18 12:11] LABS: BASOPHILS % (AUTO) 0.6 % (0.0-2.0); EOSINOPHILS # (AUTO) 1.2 K/uL (0.0-0.7); EOSINOPHILS % (AUTO) 16.3 % (0.0-6.0); HEMATOCRIT 31 % (33-45); HEMOGLOBIN 9.5 g/dL (11.5-14.8); LYMPHOCYTES % (AUTO) 12.9 % (20.0-44.0); MEAN CORPUSCULAR HEMOGLOBIN 28 PG (26.0-33.0); MEAN CORPUSCULAR HGB CONC 31 g/dl (31.0-36.0); MEAN CORPUSCULAR VOLUME 93 fL (82-100); MONOCYTES # (AUTO) 0.6 K/uL (0.1-1.30); MONOCYTES % (AUTO) 7.2 % (2.0-12.0); NEUTROPHILS # (AUTO) 4.8 K/uL (1.8-8.9); PLATELET COUNT (AUTO) 291 K/uL (150-450); RED BLOOD CELL COUNT(AUTO) 3.36 MIL/uL (4.0-5.2); RED CELL DISTRIBUTION WIDTH 18.4 % (11.5-15.0); WHITE BLOOD COUNT (AUTO) 7.7 K/uL (4.3-11.0)
[2023-06-18] MEDS: SODIUM POLYSTYRENE SULFONATE 15 G/60 ML BOTTLE GT ONE (14:55)
[2023-06-18 16:33] LABS: APPEARANCE,URINE CLEAR (CLEAR); BILIRUBIN,URINE NEGATIVE (NEGATIVE); BLOOD, URINE 2+ Ery/uL (NEGATIVE); COLOR,URINE YELLOW (YELLOW); KETONES,URINE NEGATIVE (NEGATIVE); LEUKOCYTE ESTERASE ,URINE NEGATIVE (NEGATIVE); NITRITE, URINE NEGATIVE (NEGATIVE); PROTEIN,URINE 1+ mg/dl (NEGATIVE); UGLUCOSE NEGATIVE (NEGATIVE); UROBILINOGEN,URINE 0.2 EU/dL (0.2)
[2023-06-18] MEDS: Sodium Phosphate 15 MMOL in IV NS 0.9% 245 ML IV SCH (17:30)
[2023-06-18 17:59] LABS: ADD URINE CULTURE NO; BACTERIA,URINE None seen /HPF (None Seen); MUCUS,URINE Few /LPF (None Seen); RBC,URINE 21-50 /HPF (0-2); WBC,URINE 0-2 /HPF (0-3)
[2023-06-19] VITALS (11 sets, daily range): BP systolic 119–146; BP diastolic 64–81; TEMP 98–100.2; O2SAT 95–100
[2023-06-19 06:05] LABS: BASOPHILS % (AUTO) 0.4 % (0.0-2.0); EOSINOPHILS # (AUTO) 0.9 K/uL (0.0-0.7); HEMATOCRIT 30 % (33-45); HEMOGLOBIN 9.5 g/dL (11.5-14.8); LYMPHOCYTES # (AUTO) 0.9 K/uL (0.8-4.8); LYMPHOCYTES % (AUTO) 13.6 % (20.0-44.0); MEAN CORPUSCULAR HEMOGLOBIN 29 PG (26.0-33.0); MEAN CORPUSCULAR HGB CONC 31 g/dl (31.0-36.0); MEAN CORPUSCULAR VOLUME 91 fL (82-100); MONOCYTES # (AUTO) 0.5 K/uL (0.1-1.30); NEUTROPHILS # (AUTO) 4.4 K/uL (1.8-8.9); PLATELET COUNT (AUTO) 292 K/uL (150-450); RED BLOOD CELL COUNT(AUTO) 3.33 MIL/uL (4.0-5.2); RED CELL DISTRIBUTION WIDTH 17.9 % (11.5-15.0); WHITE BLOOD COUNT (AUTO) 6.8 K/uL (4.3-11.0)
[2023-06-19 06:19] LABS: CALCIUM, SERUM 8.1 mg/dL (8.5-10.1); CREATININE 0.6 mg/dL (0.6-1.3); MAGNESIUM 2.1 mg/dL (1.8-2.4); PHOSPHORUS 2.7 mg/dL (2.5-4.9); POTASSIUM 3.3 mmol/L (3.5-5.1)
[2023-06-19] MEDS ORDERED: ACETYLCYSTEINE 10% SOLN 400 MG/4 ML VIAL NEB PRN (11:30)
[2023-06-19] MEDS: VANCOMYCIN HCL 0.75 GM in IV D5W 250 ML IV SCH (11:30)
[2023-06-19] MEDS: POTASSIUM CHLORIDE 20 MEQ POWDER PACKET PO ONE (12:18)
[2023-06-19] MEDS ORDERED: ALBUTEROL FS 2.5 MG/0.5 ML VIAL.NEB NEB PRN (15:30)
[2023-06-20] VITALS (13 sets, daily range): BP systolic 103–128; BP diastolic 52–82; TEMP 97.6–99.5; O2SAT 94–99
[2023-06-20 05:49] LABS: BASOPHILS % (AUTO) 0.6 % (0.0-2.0); EOSINOPHILS # (AUTO) 1.1 K/uL (0.0-0.7); EOSINOPHILS % (AUTO) 16.3 % (0.0-6.0); HEMATOCRIT 30 % (33-45); HEMOGLOBIN 9.1 g/dL (11.5-14.8); LYMPHOCYTES % (AUTO) 14.8 % (20.0-44.0); MEAN CORPUSCULAR HEMOGLOBIN 28 PG (26.0-33.0); MEAN CORPUSCULAR HGB CONC 31 g/dl (31.0-36.0); MEAN CORPUSCULAR VOLUME 92 fL (82-100); MONOCYTES # (AUTO) 0.4 K/uL (0.1-1.30); MONOCYTES % (AUTO) 6.1 % (2.0-12.0); NEUTROPHILS # (AUTO) 4.3 K/uL (1.8-8.9); NEUTROPHILS % (AUTO) 62.2 % (43.0-81.0); PLATELET COUNT (AUTO) 265 K/uL (150-450); RED BLOOD CELL COUNT(AUTO) 3.21 MIL/uL (4.0-5.2); RED CELL DISTRIBUTION WIDTH 18.4 % (11.5-15.0); WHITE BLOOD COUNT (AUTO) 6.9 K/uL (4.3-11.0)
[2023-06-20 06:14] LABS: ALANINE AMINOTRANSFERASE 16 U/L (12-78); ALKALINE PHOSPHATASE 114 U/L (46-116); ASPARTATE AMINOTRANSFERASE 14 U/L (15-37); BILIRUBIN,TOTAL 0.2 mg/dL (0.2-1.0); CALCIUM, SERUM 8.4 mg/dL (8.5-10.1); CARBON DIOXIDE 26 mmol/L (21-32); CHLORIDE 110 mmol/L (98-107); CREATININE 0.5 mg/dL (0.6-1.3); GLUCOSE 125 mg/dL (74-106); PHOSPHORUS 2.2 mg/dL (2.5-4.9); POTASSIUM 3.8 mmol/L (3.5-5.1); SODIUM SERUM 145 mmol/L (136-145); TOTAL PROTEIN, SERUM 7.1 g/dL (6.4-8.2); UREA NITROGEN, BLOOD 31 mg/dL (7-18)
[2023-06-20] MEDS: NEUTRA PHOS 1 POWD.PACKET GT ONE (08:36)
[2023-06-20] MEDS: ACETAMINOPHEN 650 MG/20.3 ML UDC GT PRN (13:32)
[2023-06-21] VITALS (12 sets, daily range): BP systolic 116–137; BP diastolic 60–70; TEMP 97.9–99; O2SAT 95–99
[2023-06-21 06:06] LABS: CALCIUM, SERUM 8.5 mg/dL (8.5-10.1); CREATININE 0.6 mg/dL (0.6-1.3); PHOSPHORUS 2.6 mg/dL (2.5-4.9)
[2023-06-22] VITALS (9 sets, daily range): BP systolic 101–128; BP diastolic 55–73; TEMP 98–99; O2SAT 95–99
[2023-06-22 07:36] LABS: CALCIUM, SERUM 8.7 mg/dL (8.5-10.1); CREATININE 0.6 mg/dL (0.6-1.3); POTASSIUM 4.2 mmol/L (3.5-5.1)
[2023-06-22] MEDS ORDERED: VANCOMYCIN HCL 0.75 GM in IV D5W 250 ML IV SCH (09:00)
[2023-06-22 10:58] LABS: BASOPHILS % (AUTO) 0.4 % (0.0-2.0); EOSINOPHILS # (AUTO) 1.4 K/uL (0.0-0.7); EOSINOPHILS % (AUTO) 19.9 % (0.0-6.0); HEMATOCRIT 31 % (33-45); HEMOGLOBIN 9.7 g/dL (11.5-14.8); LYMPHOCYTES # (AUTO) 0.9 K/uL (0.8-4.8); LYMPHOCYTES % (AUTO) 13.2 % (20.0-44.0); MEAN CORPUSCULAR HEMOGLOBIN 29 PG (26.0-33.0); MEAN CORPUSCULAR HGB CONC 32 g/dl (31.0-36.0); MEAN CORPUSCULAR VOLUME 91 fL (82-100); MONOCYTES # (AUTO) 0.6 K/uL (0.1-1.30); MONOCYTES % (AUTO) 8.4 % (2.0-12.0); NEUTROPHILS % (AUTO) 58.1 % (43.0-81.0); PLATELET COUNT (AUTO) 298 K/uL (150-450); RED BLOOD CELL COUNT(AUTO) 3.36 MIL/uL (4.0-5.2); RED CELL DISTRIBUTION WIDTH 18.2 % (11.5-15.0)
[2023-06-23] VITALS (8 sets, daily range): BP systolic 118–126; BP diastolic 59–69; TEMP 97.6–98.8; O2SAT 93–97
[2023-06-23 08:30] LABS: CALCIUM, SERUM 8.6 mg/dL (8.5-10.1); CREATININE 0.6 mg/dL (0.6-1.3); POTASSIUM 4.4 mmol/L (3.5-5.1)
[2023-06-24] VITALS (10 sets, daily range): BP systolic 105–136; BP diastolic 57–78; TEMP 97.9–98.1; O2SAT 10–99
[2023-06-24 07:51] LABS: CARBON DIOXIDE 25 mmol/L (21-32); CHLORIDE 100 mmol/L (98-107); CREATININE 0.6 mg/dL (0.6-1.3); GLUCOSE 135 mg/dL (74-106); POTASSIUM 4.3 mmol/L (3.5-5.1); SODIUM SERUM 133 mmol/L (136-145); UREA NITROGEN, BLOOD 44 mg/dL (7-18)
[2023-06-25] VITALS (10 sets, daily range): BP systolic 106–136; BP diastolic 72–80; TEMP 98.1; O2SAT 10–100
[2023-06-25 08:04] LABS: CALCIUM, SERUM 8.9 mg/dL (8.5-10.1); CREATININE 0.7 mg/dL (0.6-1.3); POTASSIUM 4.7 mmol/L (3.5-5.1)
[2023-06-26] VITALS (11 sets, daily range): BP systolic 104–119; BP diastolic 66–84; TEMP 98–98.7; O2SAT 95–98
[2023-06-26 07:31] LABS: CALCIUM, SERUM 8.9 mg/dL (8.5-10.1); CREATININE 0.7 mg/dL (0.6-1.3); POTASSIUM 4.5 mmol/L (3.5-5.1)
[2023-06-27] VITALS (10 sets, daily range): BP systolic 114–125; BP diastolic 60–74; TEMP 97.7–98.8; O2SAT 95–97
[2023-06-27 06:52] LABS: BASOPHILS % (AUTO) 0.3 % (0.0-2.0); EOSINOPHILS # (AUTO) 1.6 K/uL (0.0-0.7); EOSINOPHILS % (AUTO) 18.3 % (0.0-6.0); HEMATOCRIT 34 % (33-45); HEMOGLOBIN 10.5 g/dL (11.5-14.8); LYMPHOCYTES % (AUTO) 11.5 % (20.0-44.0); MEAN CORPUSCULAR HEMOGLOBIN 29 PG (26.0-33.0); MEAN CORPUSCULAR HGB CONC 31 g/dl (31.0-36.0); MEAN CORPUSCULAR VOLUME 92 fL (82-100); MONOCYTES # (AUTO) 0.5 K/uL (0.1-1.30); MONOCYTES % (AUTO) 5.9 % (2.0-12.0); NEUTROPHILS # (AUTO) 5.8 K/uL (1.8-8.9); PLATELET COUNT (AUTO) 363 K/uL (150-450); RED BLOOD CELL COUNT(AUTO) 3.66 MIL/uL (4.0-5.2); RED CELL DISTRIBUTION WIDTH 19.1 % (11.5-15.0)
[2023-06-27 08:04] LABS: CALCIUM, SERUM 8.6 mg/dL (8.5-10.1); CREATININE 0.7 mg/dL (0.6-1.3); MAGNESIUM 2.4 mg/dL (1.8-2.4); PHOSPHORUS 3.8 mg/dL (2.5-4.9); POTASSIUM 4.4 mmol/L (3.5-5.1)
[2023-06-28] VITALS (9 sets, daily range): BP systolic 114–124; BP diastolic 67–82; TEMP 98.1–99.4; O2SAT 94–100
[2023-06-28] MEDS: QUETIAPINE FUMARATE 25 MG TABLET PO ONE (20:51)
[2023-06-29] VITALS (10 sets, daily range): BP systolic 102–146; BP diastolic 62–84; TEMP 98.2–98.8; O2SAT 97–100
[2023-06-29] MEDS ORDERED: ENOXAPARIN SODIUM 40 MG/0.4 ML DISP.SYRIN SQ SCH (09:00)
[2023-06-30] VITALS (10 sets, daily range): BP systolic 111–127; BP diastolic 63–83; TEMP 98.2–99; O2SAT 95–99
[2023-06-30] MEDS: QUETIAPINE FUMARATE 25 MG TABLET GT PRN (21:32)
[2023-07-01] VITALS (10 sets, daily range): BP systolic 115–124; BP diastolic 54–71; TEMP 97.5–98.5; O2SAT 94–100
[2023-07-01 07:59] LABS: BASOPHILS % (AUTO) 0.4 % (0.0-2.0); HEMATOCRIT 28 % (33-45); LYMPHOCYTES # (AUTO) 0.8 K/uL (0.8-4.8); LYMPHOCYTES % (AUTO) 10.7 % (20.0-44.0); MEAN CORPUSCULAR HEMOGLOBIN 29 PG (26.0-33.0); MEAN CORPUSCULAR HGB CONC 32 g/dl (31.0-36.0); MEAN CORPUSCULAR VOLUME 91 fL (82-100); MONOCYTES # (AUTO) 0.6 K/uL (0.1-1.30); MONOCYTES % (AUTO) 8.3 % (2.0-12.0); NEUTROPHILS # (AUTO) 4.1 K/uL (1.8-8.9); NEUTROPHILS % (AUTO) 54.3 % (43.0-81.0); PLATELET COUNT (AUTO) 316 K/uL (150-450); RED BLOOD CELL COUNT(AUTO) 3.12 MIL/uL (4.0-5.2); RED CELL DISTRIBUTION WIDTH 18.4 % (11.5-15.0); WHITE BLOOD COUNT (AUTO) 7.6 K/uL (4.3-11.0)
[2023-07-01 08:15] LABS: EOSINOPHILS % (AUTO) 26.3 % (0.0-6.0)
[2023-07-01 08:36] LABS: CALCIUM, SERUM 8.5 mg/dL (8.5-10.1); CREATININE 0.6 mg/dL (0.6-1.3); PHOSPHORUS 3.9 mg/dL (2.5-4.9); POTASSIUM 3.8 mmol/L (3.5-5.1)
[2023-07-01 12:42] LABS: ANISOCYTOSIS 1+; BASOPHILS % (MANUAL) 0 % (0.0-2.0); EOSINOPHILS % (MANUAL) 17 % (0-4); LYMPHOCYTES % (MANUAL) 9 % (16-48); MONOCYTES % (MANUAL) 6 % (0-11.0); NEUTROPHILS % (MANUAL) 68 (42-76); PLATELET ESTIMATE ADEQUATE
[2023-07-02] VITALS (8 sets, daily range): BP systolic 107–133; BP diastolic 61–78; TEMP 97.5–98.5; O2SAT 94–97
[2023-07-03] VITALS (11 sets, daily range): BP systolic 117–144; BP diastolic 63–87; TEMP 97.9–98.3; O2SAT 94–98
[2023-07-03] MEDS: VITAMINS A AND D 56.7 GM TUBE TP SCH (10:05)
[2023-07-03] MEDS: HYDROCORTISONE 1% CREAM 28.35 GM TUBE TP SCH (18:39)
[2023-07-03] MEDS: NYSTATIN/TRIAMCIN CREAM 15 GM TUBE TP SCH (18:40)
[2023-07-04] VITALS (10 sets, daily range): BP systolic 112–133; BP diastolic 60–76; TEMP 97.9–99.1; O2SAT 95–99
[2023-07-05] VITALS (9 sets, daily range): BP systolic 106–122; BP diastolic 60–75; TEMP 97.8–98.8; O2SAT 94–98
[2023-07-06] VITALS (10 sets, daily range): BP systolic 110–141; BP diastolic 64–75; TEMP 98.1–98.7; O2SAT 95–99
[2023-07-06] MEDS: CLOTRIMAZOLE 1% 15 GM TUBE TP SCH (10:56)
[2023-07-07] VITALS (10 sets, daily range): BP systolic 109–141; BP diastolic 65–95; TEMP 98.1–99; O2SAT 95–97
[2023-07-08] VITALS (9 sets, daily range): BP systolic 117–125; BP diastolic 62–71; TEMP 98.7–99.7; O2SAT 95–99
[2023-07-09] VITALS (11 sets, daily range): BP systolic 101–144; BP diastolic 66–89; TEMP 98.1–99.7; O2SAT 93–97
[2023-07-10] VITALS (10 sets, daily range): BP systolic 110–116; BP diastolic 69–74; TEMP 98–99.7; O2SAT 94–98
[2023-07-11] VITALS (11 sets, daily range): BP systolic 86–107; BP diastolic 64–84; TEMP 98.6–100.5; O2SAT 94–96
[2023-07-11 07:57] LABS: BASOPHILS # (AUTO) 0.1 K/uL (0.0-0.2); BASOPHILS % (AUTO) 0.7 % (0.0-2.0); EOSINOPHILS # (AUTO) 0.4 K/uL (0.0-0.7); EOSINOPHILS % (AUTO) 4.1 % (0.0-6.0); HEMATOCRIT 40 % (33-45); HEMOGLOBIN 12.3 g/dL (11.5-14.8); LYMPHOCYTES # (AUTO) 0.9 K/uL (0.8-4.8); LYMPHOCYTES % (AUTO) 8.1 % (20.0-44.0); MEAN CORPUSCULAR HEMOGLOBIN 29 PG (26.0-33.0); MEAN CORPUSCULAR HGB CONC 31 g/dl (31.0-36.0); MEAN CORPUSCULAR VOLUME 93 fL (82-100); MONOCYTES # (AUTO) 0.9 K/uL (0.1-1.30); NEUTROPHILS # (AUTO) 8.6 K/uL (1.8-8.9); NEUTROPHILS % (AUTO) 79.1 % (43.0-81.0); PLATELET COUNT (AUTO) 249 K/uL (150-450); RED CELL DISTRIBUTION WIDTH 18.8 % (11.5-15.0); WHITE BLOOD COUNT (AUTO) 10.9 K/uL (4.3-11.0)
[2023-07-11 07:58] LABS: CALCIUM, SERUM 9.2 mg/dL (8.5-10.1); CREATININE 1.1 mg/dL (0.6-1.3); MAGNESIUM 2.8 mg/dL (1.8-2.4); PHOSPHORUS 4.5 mg/dL (2.5-4.9); POTASSIUM 4.1 mmol/L (3.5-5.1)
[2023-07-12] VITALS (10 sets, daily range): BP systolic 98–113; BP diastolic 57–77; TEMP 97.5–98.3; O2SAT 93–99
[2023-07-12] MEDS: IV NS 0.9% 250 ML IV ONE (00:11)
[2023-07-12] MEDS: IV 1/2NS 1000 ML 1,000 ML IV ONE (12:17)
[2023-07-12] MEDS: ALPRAZOLAM 0.25 MG TABLET PO SCH (16:10)
[2023-07-12 19:40] LABS: URINE TOTAL PROTEIN 64.2 mg/dL (0-11.9)
[2023-07-13] VITALS (9 sets, daily range): BP systolic 91–114; BP diastolic 58–63; TEMP 98.4–99.7; O2SAT 93–98
[2023-07-13 07:37] LABS: BASOPHILS % (AUTO) 0.3 % (0.0-2.0); EOSINOPHILS # (AUTO) 1.5 K/uL (0.0-0.7); EOSINOPHILS % (AUTO) 14.1 % (0.0-6.0); HEMATOCRIT 38 % (33-45); HEMOGLOBIN 11.4 g/dL (11.5-14.8); LYMPHOCYTES % (AUTO) 9.3 % (20.0-44.0); MEAN CORPUSCULAR HEMOGLOBIN 28 PG (26.0-33.0); MEAN CORPUSCULAR HGB CONC 30 g/dl (31.0-36.0); MEAN CORPUSCULAR VOLUME 94 fL (82-100); MONOCYTES # (AUTO) 0.9 K/uL (0.1-1.30); MONOCYTES % (AUTO) 8.6 % (2.0-12.0); NEUTROPHILS # (AUTO) 7.3 K/uL (1.8-8.9); NEUTROPHILS % (AUTO) 67.7 % (43.0-81.0); PLATELET COUNT (AUTO) 212 K/uL (150-450); RED BLOOD CELL COUNT(AUTO) 4.01 MIL/uL (4.0-5.2); WHITE BLOOD COUNT (AUTO) 10.8 K/uL (4.3-11.0)
[2023-07-13 08:10] LABS: CALCIUM, SERUM 8.6 mg/dL (8.5-10.1); CARBON DIOXIDE 25 mmol/L (21-32); CHLORIDE 114 mmol/L (98-107); CREATININE 0.8 mg/dL (0.6-1.3); GLUCOSE 141 mg/dL (74-106); MAGNESIUM 2.5 mg/dL (1.8-2.4); PHOSPHORUS 2.8 mg/dL (2.5-4.9); POTASSIUM 4.2 mmol/L (3.5-5.1); SODIUM SERUM 148 mmol/L (136-145); UREA NITROGEN, BLOOD 58 mg/dL (7-18)
[2023-07-13 10:35] LABS: EOSINOPHILS % (MANUAL) 11 % (0-4); LYMPHOCYTES % (MANUAL) 14 % (16-48); MONOCYTES % (MANUAL) 5 % (0-11.0); NEUTROPHILS % (MANUAL) 70 (42-76); PLATELET ESTIMATE ADEQUATE
[2023-07-13 10:36] LABS: ANISOCYTOSIS 1+; HYPOCHROMASIA 1+
[2023-07-14] VITALS (10 sets, daily range): BP systolic 105–127; BP diastolic 58–87; TEMP 98.4–99.2; O2SAT 94–99
[2023-07-14] MEDS: QUETIAPINE FUMARATE 25 MG TABLET PO SCH (14:39)
[2023-07-15] VITALS (12 sets, daily range): BP systolic 96–132; BP diastolic 55–90; TEMP 97.2–101; O2SAT 94–98
[2023-07-15 09:58] LABS: BASOPHILS % (AUTO) 0.2 % (0.0-2.0); EOSINOPHILS # (AUTO) 0.5 K/uL (0.0-0.7); EOSINOPHILS % (AUTO) 4.5 % (0.0-6.0); HEMATOCRIT 34 % (33-45); HEMOGLOBIN 10.5 g/dL (11.5-14.8); LYMPHOCYTES # (AUTO) 0.9 K/uL (0.8-4.8); LYMPHOCYTES % (AUTO) 8.8 % (20.0-44.0); MEAN CORPUSCULAR HEMOGLOBIN 28 PG (26.0-33.0); MEAN CORPUSCULAR HGB CONC 31 g/dl (31.0-36.0); MEAN CORPUSCULAR VOLUME 92 fL (82-100); MONOCYTES # (AUTO) 0.6 K/uL (0.1-1.30); MONOCYTES % (AUTO) 5.5 % (2.0-12.0); NEUTROPHILS # (AUTO) 8.2 K/uL (1.8-8.9); PLATELET COUNT (AUTO) 249 K/uL (150-450); RED BLOOD CELL COUNT(AUTO) 3.74 MIL/uL (4.0-5.2); RED CELL DISTRIBUTION WIDTH 18.8 % (11.5-15.0); WHITE BLOOD COUNT (AUTO) 10.1 K/uL (4.3-11.0)
[2023-07-15 10:28] LABS: ALBUMIN 2.2 g/dL (3.4-5.0); BILIRUBIN,TOTAL 0.2 mg/dL (0.2-1.0); CALCIUM, SERUM 8.7 mg/dL (8.5-10.1); CREATININE 1.2 mg/dL (0.6-1.3); MAGNESIUM 2.4 mg/dL (1.8-2.4); POTASSIUM 4.1 mmol/L (3.5-5.1); TOTAL PROTEIN, SERUM 8.1 g/dL (6.4-8.2)
[2023-07-15] MEDS: MEROPENEM 500 MG in IV NS 0.9% 50 ML IV SCH (13:49)
[2023-07-15] MEDS: VANCOMYCIN 1.25 GM in IV D5W 250 ML IV ONE (14:25)
[2023-07-15 16:56] LABS: APPEARANCE,URINE SLIGHTLY CLOUDY (CLEAR); BILIRUBIN,URINE NEGATIVE (NEGATIVE); BLOOD, URINE 2+ Ery/uL (NEGATIVE); COLOR,URINE YELLOW (YELLOW); KETONES,URINE NEGATIVE (NEGATIVE); LEUKOCYTE ESTERASE ,URINE 3+ (NEGATIVE); NITRITE, URINE POSITIVE (NEGATIVE); PH,URINE 7.5 (5.0-8.0); PROTEIN,URINE 1+ mg/dl (NEGATIVE); UGLUCOSE NEGATIVE (NEGATIVE); UROBILINOGEN,URINE 0.2 EU/dL (0.2)
[2023-07-15 17:14] LABS: ADD URINE CULTURE YES; BACTERIA,URINE 3+ /HPF (None Seen); RBC,URINE 21-50 /HPF (0-2); WBC,URINE 51-80 /HPF (0-3)
[2023-07-16] VITALS (12 sets, daily range): BP systolic 94–121; BP diastolic 56–81; TEMP 97.7–98.8; O2SAT 85–99
[2023-07-16 08:06] LABS: BASOPHILS % (AUTO) 0.5 % (0.0-2.0); EOSINOPHILS % (AUTO) 14.9 % (0.0-6.0); HEMATOCRIT 35 % (33-45); HEMOGLOBIN 10.8 g/dL (11.5-14.8); LYMPHOCYTES # (AUTO) 0.9 K/uL (0.8-4.8); LYMPHOCYTES % (AUTO) 12.3 % (20.0-44.0); MEAN CORPUSCULAR HEMOGLOBIN 28 PG (26.0-33.0); MEAN CORPUSCULAR HGB CONC 31 g/dl (31.0-36.0); MEAN CORPUSCULAR VOLUME 92 fL (82-100); MONOCYTES # (AUTO) 0.4 K/uL (0.1-1.30); MONOCYTES % (AUTO) 5.9 % (2.0-12.0); NEUTROPHILS # (AUTO) 4.7 K/uL (1.8-8.9); NEUTROPHILS % (AUTO) 66.4 % (43.0-81.0); PLATELET COUNT (AUTO) 223 K/uL (150-450); RED BLOOD CELL COUNT(AUTO) 3.78 MIL/uL (4.0-5.2); RED CELL DISTRIBUTION WIDTH 19.2 % (11.5-15.0)
[2023-07-16 08:53] LABS: CALCIUM, SERUM 8.9 mg/dL (8.5-10.1); CARBON DIOXIDE 25 mmol/L (21-32); CHLORIDE 114 mmol/L (98-107); CREATININE 0.9 mg/dL (0.6-1.3); GLUCOSE 111 mg/dL (74-106); MAGNESIUM 2.5 mg/dL (1.8-2.4); POTASSIUM 4.4 mmol/L (3.5-5.1); SODIUM SERUM 150 mmol/L (136-145); UREA NITROGEN, BLOOD 57 mg/dL (7-18)
[2023-07-16] MEDS: IV D5W 1,000 ML IV ONE (10:25)
[2023-07-16] MEDS: VANCOMYCIN 1 GM in IV D5W 250ml IV SCH (14:28)
[2023-07-16] MEDS: ENOXAPARIN SODIUM 40 MG/0.4 ML DISP.SYRIN SQ SCH (14:28)
[2023-07-16] MEDS: GLUCERNA 1.2 1,000 ML BOTTLE GT PRN (15:45)
[2023-07-17] VITALS (12 sets, daily range): BP systolic 92–108; BP diastolic 56–63; TEMP 98.1–99.4; O2SAT 92–97
[2023-07-17 08:05] LABS: BASOPHILS % (AUTO) 0.5 % (0.0-2.0); EOSINOPHILS # (AUTO) 1.1 K/uL (0.0-0.7); EOSINOPHILS % (AUTO) 17.3 % (0.0-6.0); HEMATOCRIT 32 % (33-45); HEMOGLOBIN 10.1 g/dL (11.5-14.8); LYMPHOCYTES # (AUTO) 0.9 K/uL (0.8-4.8); LYMPHOCYTES % (AUTO) 14.4 % (20.0-44.0); MEAN CORPUSCULAR HEMOGLOBIN 29 PG (26.0-33.0); MEAN CORPUSCULAR HGB CONC 31 g/dl (31.0-36.0); MEAN CORPUSCULAR VOLUME 92 fL (82-100); MONOCYTES # (AUTO) 0.4 K/uL (0.1-1.30); MONOCYTES % (AUTO) 6.7 % (2.0-12.0); NEUTROPHILS # (AUTO) 3.8 K/uL (1.8-8.9); NEUTROPHILS % (AUTO) 61.1 % (43.0-81.0); PLATELET COUNT (AUTO) 217 K/uL (150-450); RED BLOOD CELL COUNT(AUTO) 3.52 MIL/uL (4.0-5.2); WHITE BLOOD COUNT (AUTO) 6.2 K/uL (4.3-11.0)
[2023-07-17 08:12] LABS: CALCIUM, SERUM 8.6 mg/dL (8.5-10.1); CREATININE 0.8 mg/dL (0.6-1.3); MAGNESIUM 2.3 mg/dL (1.8-2.4); PHOSPHORUS 3.1 mg/dL (2.5-4.9)
[2023-07-17] MEDS: QUETIAPINE FUMARATE 25 MG TABLET PO SCH (17:28)
[2023-07-18] VITALS: BP 112/55; TEMP 98.4; O2SAT 97
[2023-07-18 03:02] VITALS: O2SAT 94
[2023-07-18 04:00] VITALS: BP 114/58; TEMP 98.6; O2SAT 93
[2023-07-18 08:00] VITALS: BP 113/83; TEMP 98.8; O2SAT 95
[2023-07-18] MEDS ORDERED: QUETIAPINE FUMARATE 25 MG TABLET GT PRN (08:00)
[2023-07-18 08:18] LABS: CALCIUM, SERUM 8.6 mg/dL (8.5-10.1); CREATININE 0.8 mg/dL (0.6-1.3); POTASSIUM 4.2 mmol/L (3.5-5.1)
[2023-07-18 08:25] VITALS: O2SAT 94
[2023-07-18 11:28] VITALS: O2SAT 94
[2023-07-20] MEDS ORDERED: VANCOMYCIN 0.75 GM in IV D5W 250 ML IV SCH (14:00)
== END 2023-07-18 15:38 | DRG 710 ==
LOC: ER 10:21 → ICU 13:29 → TELE1 06-03 09:43 → ICU 06-05 22:05 → TELE-TD 06-15 14:16 → TELE1 06-20 14:36 → MEDSG1 06-21 09:25 → TELE1 07-11 23:00
PROVIDERS: ADMIT Nurse Practitioner Family; ATTEND Nurse Practitioner Family
PROC: 02HV33Z Insertion of Infusion Device into Superior Vena Cava, Percutaneous Approach (ICD-10-PCS; principal; 2023-06-02)
PROC: B548ZZA Ultrasonography of Superior Vena Cava, Guidance (ICD-10-PCS; 2023-06-02)
PROC: 5A2204Z Restoration of Cardiac Rhythm, Single (ICD-10-PCS; 2023-06-05)
PROC: 0BH17EZ Insertion of Endotracheal Airway into Trachea, Via Natural or Artificial Opening (ICD-10-PCS; 2023-06-05)
PROC: 5A2204Z Restoration of Cardiac Rhythm, Single (ICD-10-PCS; 2023-06-05)
PROC: 5A1945Z Respiratory Ventilation, 24-96 Consecutive Hours (ICD-10-PCS; 2023-06-06)
PROC: 5A09457 Assistance with Respiratory Ventilation, 24-96 Consecutive Hours, Continuous Positive Airway Pressure (ICD-10-PCS; 2023-06-07)
PROC: 0KBN0ZZ Excision of Right Hip Muscle, Open Approach (ICD-10-PCS; 2023-06-08)
PROC: 0KBP0ZZ Excision of Left Hip Muscle, Open Approach (ICD-10-PCS; 2023-06-08)
PROC: 5A1945Z Respiratory Ventilation, 24-96 Consecutive Hours (ICD-10-PCS; 2023-06-13)
PROC: 0BH17EZ Insertion of Endotracheal Airway into Trachea, Via Natural or Artificial Opening (ICD-10-PCS; 2023-06-13)
PROC: 0BH17EZ Insertion of Endotracheal Airway into Trachea, Via Natural or Artificial Opening (ICD-10-PCS; 2023-06-13)
PROC: 0BJ08ZZ Inspection of Tracheobronchial Tree, Via Natural or Artificial Opening Endoscopic (ICD-10-PCS; 2023-06-14)
PROC: 0B113F4 Bypass Trachea to Cutaneous with Tracheostomy Device, Percutaneous Approach (ICD-10-PCS; 2023-06-14)
PROC: 0KBP0ZZ Excision of Left Hip Muscle, Open Approach (ICD-10-PCS; 2023-06-15)
PROC: 0KBN0ZZ Excision of Right Hip Muscle, Open Approach (ICD-10-PCS; 2023-06-15)
PROC: 0D20XUZ Change Feeding Device in Upper Intestinal Tract, External Approach (ICD-10-PCS; 2023-06-16)
PROC: 0KBP0ZZ Excision of Left Hip Muscle, Open Approach (ICD-10-PCS; 2023-06-19)
PROC: 0KBN0ZZ Excision of Right Hip Muscle, Open Approach (ICD-10-PCS; 2023-06-19)
PROC: 0KBP0ZZ Excision of Left Hip Muscle, Open Approach (ICD-10-PCS; 2023-07-04)
PROC: 0KBN0ZZ Excision of Right Hip Muscle, Open Approach (ICD-10-PCS; 2023-07-04)
PROC: 0KBP0ZZ Excision of Left Hip Muscle, Open Approach (ICD-10-PCS; 2023-07-18)
PROC: 0KBN0ZZ Excision of Right Hip Muscle, Open Approach (ICD-10-PCS; 2023-07-18)
DX: A41.9 Sepsis, unspecified organism (principal); J96.21 Acute and chronic respiratory failure with hypoxia; R65.21 Severe sepsis with septic shock; I46.9 Cardiac arrest, cause unspecified; G92.8 Other toxic encephalopathy; E44.0 Moderate protein-calorie malnutrition; B49 Unspecified mycosis; J15.212 Pneumonia due to Methicillin resistant Staphylococcus aureus; L89.154 Pressure ulcer of sacral region, stage 4; D68.59 Other primary thrombophilia; R53.2 Functional quadriplegia; T79.7XXA Traumatic subcutaneous emphysema, initial encounter; Z20.822 Contact with and (suspected) exposure to COVID-19; Z79.51 Long term (current) use of inhaled steroids; Z79.82 Long term (current) use of aspirin; Z79.899 Other long term (current) drug therapy; N39.0 Urinary tract infection, site not specified; B96.89 Other specified bacterial agents as the cause of diseases classified elsewhere; D64.9 Anemia, unspecified; E87.1 Hypo-osmolality and hyponatremia; E78.5 Hyperlipidemia, unspecified; E88.09 Other disorders of plasma-protein metabolism, not elsewhere classified; R13.10 Dysphagia, unspecified; I11.0 Hypertensive heart disease with heart failure; I50.9 Heart failure, unspecified; Z87.19 Personal history of other diseases of the digestive system; I69.351 Hemiplegia and hemiparesis following cerebral infarction affecting right dominant side; Z86.79 Personal history of other diseases of the circulatory system; E86.1 Hypovolemia; E86.0 Dehydration; Z90.49 Acquired absence of other specified parts of digestive tract; J98.11 Atelectasis; K57.30 Diverticulosis of large intestine without perforation or abscess without bleeding; M24.561 Contracture, right knee; M24.572 Contracture, left ankle; M89.8X9 Other specified disorders of bone, unspecified site; N20.0 Calculus of kidney; S90.421A Blister (nonthermal), right great toe, initial encounter; X58.XXXA Exposure to other specified factors, initial encounter; Y92.9 Unspecified place or not applicable; R74.01 Elevation of levels of liver transaminase levels; N17.9 Acute kidney failure, unspecified; Z74.01 Bed confinement status; Z78.1 Physical restraint status; Z86.19 Personal history of other infectious and parasitic diseases; E83.42 Hypomagnesemia; L60.0 Ingrowing nail; L85.3 Xerosis cutis; Z86.14 Personal history of Methicillin resistant Staphylococcus aureus infection; Z86.16 Personal history of COVID-19; F13.20 Sedative, hypnotic or anxiolytic dependence, uncomplicated; N13.6 Pyonephrosis; E87.0 Hyperosmolality and hypernatremia; K94.23 Gastrostomy malfunction; Y83.3 Surgical operation with formation of external stoma as the cause of abnormal reaction of the patient, or of later complication, without mention of misadventure at the time of the procedure; Y82.8 Other medical devices associated with adverse incidents; Y92.10 Unspecified residential institution as the place of occurrence of the external cause; Z87.2 Personal history of diseases of the skin and subcutaneous tissue; J95.03 Malfunction of tracheostomy stoma; B96.1 Klebsiella pneumoniae [K. pneumoniae] as the cause of diseases classified elsewhere; E86.9 Volume depletion, unspecified
CPT/HCPCS: 31720; 36410; 36415; 36569; 36600; 71045-TC; 80048-TC; 80053-TC; 80076-TC; 80202-TC; 81001; 82570-TC; 82728-TC; 82803-TC; 82962-TC; 83540-TC; 83605-TC; 83735-TC; 84100-TC; 84300-TC; 84478-TC; 84484-TC; 85025-TC; 85610-TC; 85730-TC; 86803; 87040-TC; 87081-TC; 87086-TC; 87806; 92950-TC; 94002-TC; 94003-TC; 94640-TC; 94760-TC; 94799-TC; 99082-TC; A4223; A4623; A4624; A6253; A6403; A7526; A9563; C1769; C9803; G0378; J0171; J0330; J0692; J1650; J1940; J2185; J2250; J2704; J3370; J3490; J7030; J7040; J7042; J7050; J7060; J7070; J8597